=== PATIENT | female | born 1955 | race Caucasian/White ===

== ENCOUNTER 2018-04-22 15:31 | Observation (INO) ==
[2018-04-22] MEDS ORDERED: Ipratropium/Albuterol Neb 3 ML IH ONE (15:56)
[2018-04-22] MEDS ORDERED: methylPREDNISolone 125 MG/2 ML VIAL IVP ONE (15:56)
--- NOTE | 2018-04-22 16:17 | Emergency Department Note ---
Disposition Clinical Impression: Acute exacerbation of chronic obstructive airways disease, Shortness of breath Disposition: Still a Patient Condition: Good Referrals: Seth Amin MD [Primary Care Provider] - Time of Disposition: 18:52 SOB HPI - General Stated Complaint: SOB Time Seen by Provider: 04/22/18 15:39 Source: patient, EMS Mode of arrival: EMS Limitations: no limitations Nursing Notes Reviewed: Yes Vital Signs Reviewed: Yes - History of Present Illness Patient presents to the ED with the chief complaint of shortness of breath. Patient has a history of oxygen dependent COPD. States that she felt fine until today when she got her flu shot. She went home and took a nap, woke up very short of breath. States she has had a productive cough since then. Having chest tightness consistent with her COPD exacerbations. Denying any fever or chills. Denies any abdominal pain. No nausea, vomiting or diarrhea. Has chronic left ankle pain, but otherwise no pain or swelling in her legs. - Related Data Allergies Allergy/AdvReac Type Severity Reaction Status Date / Time lamotrigine [From Lamictal] Allergy See Verified 04/22/18 16:10 Comments morphine Allergy Nausea Verified 04/22/18 16:10 Review of Systems: As reviewed in the HPI. All other systems reviewed are negative or normal. Past Medical History - Past Medical History Attestation: Yes The following information was validated with the patient. Source: patient Physical Exam CONSTITUTIONAL: [well appearing, alert and in mild acute distress] EYES: [EOMI, clear conjunctiva, PERRLA] HENT: [Normocephalic, atraumatic, moist mucus membranes, normal oropharynx] NECK: [normal inspection, full ROM, trachea midline, no obvious swelling] PULMONARY: [mild distress, tachypnea, decreased BS b/l bases, trace wheezing throughout CARDIOVASCULAR: [tachycardic, regular rhythm, normal heart sounds, no murmurs, distal extremities are warm and well perfused] GASTROINSTESTINAL: [soft, non-tender, non-rigid, non-distended, no guarding, no rebound, normal bowel sounds] GENITOURINARY/RECTAL: [deferred] NEUROLOGIC: [Alert, oriented x3, normal speech, moves all extremities] EXTREMITIES: [Normal inspection, full ROM, no tenderness, no pedal edema, normal capillary refill] MUSCULOSKELETAL: [no gross deformities, atraumatic] SKIN: [No cyanosis, no diaphoresis, normal color, warm, no rash] PSYCHIATRIC: [anxious] Course - Reevaluation(s) Reevaluation #1: patient with no clear source of SOB. Will get CTA and sign out to night team Dr. Vera. Vital Signs Temperature 99.8 F H 04/22/18 15:42 Pulse Rate 115 04/22/18 15:42 Respiratory Rate 23 04/22/18 15:42 Blood Pressure 137/79 04/22/18 15:42 O2 Sat by Pulse Oximetry 98 04/22/18 15:42 Temperature 99.8 F H 04/22/18 15:42 Pulse Rate 115 04/22/18 15:42 Respiratory Rate 23 04/22/18 15:42 Blood Pressure 137/79 04/22/18 15:42 O2 Sat by Pulse Oximetry 98 04/22/18 15:42 Oxygen Delivery Oxygen Delivery Nasal Cannula Shortness of Breath/Dyspnea - Lab Data Result diagrams: 04/22/18 16:19 04/22/18 16:19 Lab Results 04/22/18 04/22/18 04/22/18 Range/Units 16:19 16:19 16:19 WBC 14.7 H (4.3-11.1) K/mcL RBC 4.96 (3.82-4.97) M/mcL Hgb 12.0 (11.5-15.4) g/dL Hct 39.9 (35.3-44.9) % MCV 80.4 L (83.0-100.0) fL MCH 24.2 L (28.0-33.3) pg MCHC 30.1 L (31.6-35.5) g/dL RDW 14.6 H (11.5-14.5) % Plt Count 331 (140-400) K/mcL MPV 10.8 (9.4-12.4) fL Immature Gran % 0.3 (0-4) % Seg Neutrophils % 92.1 % Lymphocytes % 3.7 % Monocytes % 3.5 % Eosinophils % 0.3 % Basophils % 0.1 % Neutrophils # 13.6 H (1.6-8.9) K/mcL Lymphocytes # 0.5 L (0.6-4.6) K/mcL Monocytes # 0.5 (0.0-1.3) K/mcL Eosinophils # 0.0 (0.0-0.6) K/mcL Basophils # 0.0 (0.0-0.2) K/mcL Sodium 137 (136-145) mEq/L Potassium 4.4 (3.5-5.1) mEq/L Chloride 102 (98-107) mEq/L Carbon Dioxide 27 (23-29) mEq/L BUN 23 (8-23) mg/dL Creatinine 0.95 (0.60-1.20) mg/dL Est GFR ( Amer) > 60 (> 60) Est GFR (Non-Af Amer) 59 L (> 60) BUN/Creatinine Ratio 24 (6-26) Glucose 170 H (70-105) mg/dL Calculated Osmolality 292 (280-300) Lactic Acid 1.5 (0.5-2.2) mmol/L Calcium 10.1 (8.6-10.3) mg/dL Troponin I < 0.03 (< 0.04) ng/mL B-Natriuretic Peptide (Less than 100) pg/mL 04/22/18 Range/Units 16:19 WBC (4.3-11.1) K/mcL RBC (3.82-4.97) M/mcL Hgb (11.5-15.4) g/dL Hct (35.3-44.9) % MCV (83.0-100.0) fL MCH (28.0-33.3) pg MCHC (31.6-35.5) g/dL RDW (11.5-14.5) % Plt Count (140-400) K/mcL MPV (9.4-12.4) fL Immature Gran % (0-4) % Seg Neutrophils % % Lymphocytes % % Monocytes % % Eosinophils % % Basophils % % Neutrophils # (1.6-8.9) K/mcL Lymphocytes # (0.6-4.6) K/mcL Monocytes # (0.0-1.3) K/mcL Eosinophils # (0.0-0.6) K/mcL Basophils # (0.0-0.2) K/mcL Sodium (136-145) mEq/L Potassium (3.5-5.1) mEq/L Chloride (98-107) mEq/L Carbon Dioxide (23-29) mEq/L BUN (8-23) mg/dL Creatinine (0.60-1.20) mg/dL Est GFR ( Amer) (> 60) Est GFR (Non-Af Amer) (> 60) BUN/Creatinine Ratio (6-26) Glucose (70-105) mg/dL Calculated Osmolality (280-300) Lactic Acid (0.5-2.2) mmol/L Calcium (8.6-10.3) mg/dL Troponin I (< 0.04) ng/mL B-Natriuretic Peptide 36 (Less than 100) pg/mL
[2018-04-22 16:35] LABS: Basophils % 0.1 %; Eosinophils % 0.3 %; Hematocrit 39.9 % (35.3-44.9); Immature Granulocytes % 0.3 % (0-4); Lymphocytes # 0.5 K/mcL (0.6-4.6); Lymphocytes % 3.7 %; Mean Corpuscular HGB Conc 30.1 g/dL (31.6-35.5); Mean Corpuscular Hemoglobin 24.2 pg (28.0-33.3); Mean Corpuscular Volume 80.4 fL (83.0-100.0); Mean Platelet Volume 10.8 fL (9.4-12.4); Monocytes # 0.5 K/mcL (0.0-1.3); Monocytes % 3.5 %; Neutrophils # 13.6 K/mcL (1.6-8.9); Platelet Count 331 K/mcL (140-400); Red Blood Count 4.96 M/mcL (3.82-4.97); Red Cell Distribution Width 14.6 % (11.5-14.5); Segmented Neutrophils % 92.1 %
[2018-04-22 16:54] LABS: BUN/Creatinine Ratio 24 (6-26); Blood Urea Nitrogen 23 mg/dL (8-23); Calcium 10.1 mg/dL (8.6-10.3); Carbon Dioxide 27 mEq/L (23-29); Chloride 102 mEq/L (98-107); Glucose 170 mg/dL (70-105); Osmolality,Calculated 292 (280-300); Potassium 4.4 mEq/L (3.5-5.1); Sodium 137 mEq/L (136-145); Troponin I < 0.03 ng/mL (< 0.04); eGFR For Non-African Americans 59 (> 60)
[2018-04-22] MEDS ORDERED: Isovue-370 500 ML INFUS..BTL IV ONE (17:02)
--- NOTE | 2018-04-22 18:57 | Emergency Department Note ---
Disposition Clinical Impression: Acute exacerbation of chronic obstructive airways disease, Shortness of breath Disposition: Admitted As Inpatient Condition: Good General Adult HPI - General Chief complaint: ED Shortness of Breath/Dyspnea Stated complaint: SOB Time Seen by Provider: 04/22/18 15:39 Source: patient, EMS Mode of arrival: EMS Limitations: no limitations - History of Present Illness Pain Scale: 0 - Related Data Home Medications Medication Instructions Recorded Confirmed Calcium Carbonate/Vitamin D3 1 tab PO BID 04/22/18 04/22/18 [Calcium 600-Vit D3 400 Tablet] Ferrous Sulfate 325 mg PO DAILY 04/22/18 04/22/18 Glycopyrrolate/Formoterol Fum 2 puff IH BID 04/22/18 04/22/18 [Bevespi Aerosphere Inhaler] Hydrochlorothiazide [Microzide] 12.5 mg PO DAILY 04/22/18 04/22/18 Ibandronate Sodium [Boniva] 150 mg PO QMONTH 04/22/18 04/22/18 Metoprolol Tartrate 50 mg PO BID 04/22/18 04/22/18 Pravastatin Sodium [Pravachol] 40 mg PO QPM 04/22/18 04/22/18 RX: Lisinopril [Zestril] 20 mg PO BID 04/22/18 04/22/18 Roflumilast [Daliresp] 500 mg PO DAILY 04/22/18 04/22/18 Verapamil HCl [Verapamil ER] 240 mg PO DAILY 04/22/18 04/22/18 Allergies Allergy/AdvReac Type Severity Reaction Status Date / Time lamotrigine [From Lamictal] Allergy See Verified 04/22/18 16:10 Comments morphine Allergy Nausea Verified 04/22/18 16:10 Past Medical History - Past Medical History Medical history: Reports: COPD, hypertension Psychiatric history: Reports: no psych history - Social History Smoking Status: Former smoker Alcohol use: Reports: none Drug use: Reports: none Physical Exam - General Limitations: no limitations General appearance: alert Course Vital Signs Temperature 99.8 F H 04/22/18 15:42 Pulse Rate 115 04/22/18 15:42 Respiratory Rate 23 04/22/18 15:42 Blood Pressure 137/79 04/22/18 15:42 O2 Sat by Pulse Oximetry 98 04/22/18 15:42 Temperature 98.3 F 04/23/18 11:52 Pulse Rate 96 04/23/18 11:52 Respiratory Rate 16 04/23/18 11:52 Blood Pressure 130/69 04/23/18 11:52 O2 Sat by Pulse Oximetry 98 04/23/18 11:52 Oxygen Delivery Oxygen Delivery Nasal Cannula Medical Decision Making - Lab Data Result diagrams: 04/22/18 16:19 04/22/18 16:19 Lab Results 04/22/18 04/22/18 04/22/18 Range/Units 16:19 16:19 16:19 WBC 14.7 H (4.3-11.1) K/mcL RBC 4.96 (3.82-4.97) M/mcL Hgb 12.0 (11.5-15.4) g/dL Hct 39.9 (35.3-44.9) % MCV 80.4 L (83.0-100.0) fL MCH 24.2 L (28.0-33.3) pg MCHC 30.1 L (31.6-35.5) g/dL RDW 14.6 H (11.5-14.5) % Plt Count 331 (140-400) K/mcL MPV 10.8 (9.4-12.4) fL Immature Gran % 0.3 (0-4) % Seg Neutrophils % 92.1 % Lymphocytes % 3.7 % Monocytes % 3.5 % Eosinophils % 0.3 % Basophils % 0.1 % Neutrophils # 13.6 H (1.6-8.9) K/mcL Lymphocytes # 0.5 L (0.6-4.6) K/mcL Monocytes # 0.5 (0.0-1.3) K/mcL Eosinophils # 0.0 (0.0-0.6) K/mcL Basophils # 0.0 (0.0-0.2) K/mcL Sodium 137 (136-145) mEq/L Potassium 4.4 (3.5-5.1) mEq/L Chloride 102 (98-107) mEq/L Carbon Dioxide 27 (23-29) mEq/L BUN 23 (8-23) mg/dL Creatinine 0.95 (0.60-1.20) mg/dL Est GFR ( Amer) > 60 (> 60) Est GFR (Non-Af Amer) 59 L (> 60) BUN/Creatinine Ratio 24 (6-26) Glucose 170 H (70-105) mg/dL Calculated Osmolality 292 (280-300) Lactic Acid 1.5 (0.5-2.2) mmol/L Calcium 10.1 (8.6-10.3) mg/dL Magnesium 1.5 L (1.6-2.6) mg/dL Troponin I < 0.03 (< 0.04) ng/mL B-Natriuretic Peptide (Less than 100) pg/mL 04/22/18 Range/Units 16:19 WBC (4.3-11.1) K/mcL RBC (3.82-4.97) M/mcL Hgb (11.5-15.4) g/dL Hct (35.3-44.9) % MCV (83.0-100.0) fL MCH (28.0-33.3) pg MCHC (31.6-35.5) g/dL RDW (11.5-14.5) % Plt Count (140-400) K/mcL MPV (9.4-12.4) fL Immature Gran % (0-4) % Seg Neutrophils % % Lymphocytes % % Monocytes % % Eosinophils % % Basophils % % Neutrophils # (1.6-8.9) K/mcL Lymphocytes # (0.6-4.6) K/mcL Monocytes # (0.0-1.3) K/mcL Eosinophils # (0.0-0.6) K/mcL Basophils # (0.0-0.2) K/mcL Sodium (136-145) mEq/L Potassium (3.5-5.1) mEq/L Chloride (98-107) mEq/L Carbon Dioxide (23-29) mEq/L BUN (8-23) mg/dL Creatinine (0.60-1.20) mg/dL Est GFR ( Amer) (> 60) Est GFR (Non-Af Amer) (> 60) BUN/Creatinine Ratio (6-26) Glucose (70-105) mg/dL Calculated Osmolality (280-300) Lactic Acid (0.5-2.2) mmol/L Calcium (8.6-10.3) mg/dL Magnesium (1.6-2.6) mg/dL Troponin I (< 0.04) ng/mL B-Natriuretic Peptide 36 (Less than 100) pg/mL Attestation Statement - Attestation Attestation: Resident Attestation: I examined this patient and my medical decision making was reviewed with the Resident Physician. I agree with the documented findings, disposition and treatment plan as described except to the extent set forth below. We independently had [id number] contact with the patient. Patient seen with resident physician Dr. Hua Moura. Please see their note for further details and disposition. History of COPD as well as CHF presenting for evaluation of shortness of breath proximally and hour after she received the flu shot. Patient has associated wheezing and tachypnea with tachycardia. Patient likely has COPD exacerbation. The patient will undergo further breathing treatments and evaluation. Patient will likely require admission. Mild respiratory distress with associated increased worker breathing and generalized wheezing. No significant peripheral edema.
--- NOTE | 2018-04-22 19:18 | Emergency Department Note ---
Disposition Clinical Impression: Acute exacerbation of chronic obstructive airways disease, Shortness of breath Disposition: Admitted As Inpatient Condition: Good General Adult HPI - General Chief complaint: ED Shortness of Breath/Dyspnea Stated complaint: SOB Time Seen by Provider: 04/22/18 15:39 Source: patient, EMS Mode of arrival: EMS Limitations: no limitations Nursing Notes Reviewed: Yes Vital Signs Reviewed: Yes - History of Present Illness Pain Scale: 0 - Related Data Home Medications Medication Instructions Recorded Confirmed Calcium Carbonate/Vitamin D3 1 tab PO BID 04/22/18 04/22/18 [Calcium 600-Vit D3 400 Tablet] Ferrous Sulfate 325 mg PO DAILY 04/22/18 04/22/18 Glycopyrrolate/Formoterol Fum 2 puff IH BID 04/22/18 04/22/18 [Bevespi Aerosphere Inhaler] Hydrochlorothiazide [Microzide] 12.5 mg PO DAILY 04/22/18 04/22/18 Ibandronate Sodium [Boniva] 150 mg PO QMONTH 04/22/18 04/22/18 Metoprolol Tartrate 50 mg PO BID 04/22/18 04/22/18 Pravastatin Sodium [Pravachol] 40 mg PO QPM 04/22/18 04/22/18 RX: Lisinopril [Zestril] 20 mg PO DAILY 04/22/18 04/22/18 Roflumilast [Daliresp] 500 mg PO DAILY 04/22/18 04/22/18 Verapamil HCl [Verapamil ER] 240 mg PO DAILY 04/22/18 04/22/18 Allergies Allergy/AdvReac Type Severity Reaction Status Date / Time lamotrigine [From Lamictal] Allergy See Verified 04/22/18 16:10 Comments morphine Allergy Nausea Verified 04/22/18 16:10 Past Medical History - Past Medical History Medical history: Reports: COPD, hypertension Psychiatric history: Reports: no psych history - Social History Smoking Status: Former smoker Alcohol use: Reports: none Drug use: Reports: none Physical Exam - General Limitations: no limitations General appearance: alert Course Course Narrative: Patient signed out from day shift team pending final disposition and imaging. Please see their documentation for details. In brief oxygen-dependent COPD patient presenting with abdominal shortness of breath today. She had her influenza vaccine earlier in the day. Reports feeling short of breath. Denies any fever cough or chest pain. No history of DVT or PE. Denies a history of CAD or CHF. Imaging labs reviewed. She has cardiomegaly and vascular congestion on her chest x-ray. Labs are grossly unremarkable. Currently waiting CTA imaging. She received DuoNeb treatments prior to my evaluation and reported some improvement in her symptoms. - Reevaluation(s) Reevaluation #1: Discussed results of imaging with the patient. Agreeable with plan. She feels better at this time after her aerosols. Vital Signs Temperature 99.8 F H 04/22/18 15:42 Pulse Rate 115 04/22/18 15:42 Respiratory Rate 23 04/22/18 15:42 Blood Pressure 137/79 04/22/18 15:42 O2 Sat by Pulse Oximetry 98 04/22/18 15:42 Temperature 99.8 F H 04/22/18 15:42 Pulse Rate 96 04/22/18 19:40 Respiratory Rate 22 04/22/18 19:40 Blood Pressure 105/54 04/22/18 19:40 O2 Sat by Pulse Oximetry 97 04/22/18 19:40 Oxygen Delivery Oxygen Delivery Nasal Cannula Medical Decision Making - [facility] Narrative Medical decision making narrative: 63-year-old female presenting with 1 day of shortness of breath. Underlying history of oxygen-dependent COPD. She did receive her influenza vaccine today which seems to have patient to her current symptomatology. She improved here with DuoNeb treatments. EKG is sinus tachycardia. CTA is negative for PE or acute findings. Labs demonstrated a leukocytosis otherwise no acute abnormalities otherwise. Patient given Levaquin for exacerbation. Admitted to the hospitalist service. Chest X-Ray 04/22/18 15:56 IMPRESSION: 1. Cardiomegaly with vascular congestion. D/ / Jr Das MD / Jr Das MD Interpreting Provider: Jr Das MD Chest CTA 04/22/18 17:02 IMPRESSION: No pulmonary embolism is detected. No evidence of thoracic aortic dissection. Mild atelectasis within the lower lungs bilaterally, greatest in the lingula. Otherwise, no acute focal infiltrate. D/ / Boaz Ortiz MD / Boaz Ortiz MD Interpreting Provider: Boaz Ortiz MD 2010 hrs.: No PE detected. This showed the atelectasis pattern but no infiltrates. We will proceed with admission. - Lab Data Lab results reviewed: Yes I reviewed the patient's lab results. Result diagrams: 04/22/18 16:19 04/22/18 16:19 Lab Results 04/22/18 04/22/18 04/22/18 Range/Units 16:19 16:19 16:19 WBC 14.7 H (4.3-11.1) K/mcL RBC 4.96 (3.82-4.97) M/mcL Hgb 12.0 (11.5-15.4) g/dL Hct 39.9 (35.3-44.9) % MCV 80.4 L (83.0-100.0) fL MCH 24.2 L (28.0-33.3) pg MCHC 30.1 L (31.6-35.5) g/dL RDW 14.6 H (11.5-14.5) % Plt Count 331 (140-400) K/mcL MPV 10.8 (9.4-12.4) fL Immature Gran % 0.3 (0-4) % Seg Neutrophils % 92.1 % Lymphocytes % 3.7 % Monocytes % 3.5 % Eosinophils % 0.3 % Basophils % 0.1 % Neutrophils # 13.6 H (1.6-8.9) K/mcL Lymphocytes # 0.5 L (0.6-4.6) K/mcL Monocytes # 0.5 (0.0-1.3) K/mcL Eosinophils # 0.0 (0.0-0.6) K/mcL Basophils # 0.0 (0.0-0.2) K/mcL Sodium 137 (136-145) mEq/L Potassium 4.4 (3.5-5.1) mEq/L Chloride 102 (98-107) mEq/L Carbon Dioxide 27 (23-29) mEq/L BUN 23 (8-23) mg/dL Creatinine 0.95 (0.60-1.20) mg/dL Est GFR ( Amer) > 60 (> 60) Est GFR (Non-Af Amer) 59 L (> 60) BUN/Creatinine Ratio 24 (6-26) Glucose 170 H (70-105) mg/dL Calculated Osmolality 292 (280-300) Lactic Acid 1.5 (0.5-2.2) mmol/L Calcium 10.1 (8.6-10.3) mg/dL Magnesium 1.5 L (1.6-2.6) mg/dL Troponin I < 0.03 (< 0.04) ng/mL B-Natriuretic Peptide (Less than 100) pg/mL 04/22/18 Range/Units 16:19 WBC (4.3-11.1) K/mcL RBC (3.82-4.97) M/mcL Hgb (11.5-15.4) g/dL Hct (35.3-44.9) % MCV (83.0-100.0) fL MCH (28.0-33.3) pg MCHC (31.6-35.5) g/dL RDW (11.5-14.5) % Plt Count (140-400) K/mcL MPV (9.4-12.4) fL Immature Gran % (0-4) % Seg Neutrophils % % Lymphocytes % % Monocytes % % Eosinophils % % Basophils % % Neutrophils # (1.6-8.9) K/mcL Lymphocytes # (0.6-4.6) K/mcL Monocytes # (0.0-1.3) K/mcL Eosinophils # (0.0-0.6) K/mcL Basophils # (0.0-0.2) K/mcL Sodium (136-145) mEq/L Potassium (3.5-5.1) mEq/L Chloride (98-107) mEq/L Carbon Dioxide (23-29) mEq/L BUN (8-23) mg/dL Creatinine (0.60-1.20) mg/dL Est GFR ( Amer) (> 60) Est GFR (Non-Af Amer) (> 60) BUN/Creatinine Ratio (6-26) Glucose (70-105) mg/dL Calculated Osmolality (280-300) Lactic Acid (0.5-2.2) mmol/L Calcium (8.6-10.3) mg/dL Magnesium (1.6-2.6) mg/dL Troponin I (< 0.04) ng/mL B-Natriuretic Peptide 36 (Less than 100) pg/mL - Radiology Data Radiology results reviewed: Yes I reviewed the patient's radiology results. Chest X-Ray 04/22/18 15:56 IMPRESSION: 1. Cardiomegaly with vascular congestion. D/ / Jr Das MD / Jr Das MD Interpreting Provider: Jr Das MD Chest CTA 04/22/18 17:02 IMPRESSION: No pulmonary embolism is detected. No evidence of thoracic aortic dissection. Mild atelectasis within the lower lungs bilaterally, greatest in the lingula. Otherwise, no acute focal infiltrate. D/ / Boaz Ortiz MD / Boaz Ortiz MD Interpreting Provider: Boaz Ortiz MD - EKG Data EKG #1 EKG attestation: Yes I reviewed and interpreted this EKG. EKG results narrative: EKG demonstrates sinus tachycardia with a rate of 1:15. Normal axis. Normal intervals. Normal R-wave progression. No gross ST elevations or depressions. No acute ischemic findings. S.B.A.R. - S.B.A.R. Situation: Demographics, MOA Background: Presenting Complaint, Relevant PMH, Meds, & Allergies Assessment: Vital Signs, Course and respsone to treatment, Exam Concerns, Pat ient/Family Expectation, Pertinant Lab Results Recommendation: Barrier(s) to disposition, Recommendation based on pending studies, treatments, or consults S.B.A.R. Report Given to: Dr. Gaming Attestation Statement - Attestation Attestation: This documentation is done with the assistance of Dragon dictation. Despite efforts made to ensure accuracy, there may be inaccuracies in principal secretary or spelling and typographical errors. I examined this patient and my medical decision-making was reviewed with the Resident Physician. I agree with the documented findings, disposition and treatment plan as described except to the extent set forth below. Patient was a sign out from the day shift ER physician, they are waiting on a CTA for her to rule out PE. She is new onset CHF. Has a history of COPD. She says she does not need another breathing treatment at this time. We will await for the CTA and then one sets back she will need admission. She is in agreement with this plan. Dr. Haque and I saw this patient together I agree with his evaluation, man agement plan, and I supervised the care of the patient's stay.
[2018-04-22] MEDS ORDERED: Levofloxacin 750 MG/150 ML 750 MG/150 ML BAG IVPB ONE (20:10)
[2018-04-22 21:19] LABS: Magnesium 1.5 mg/dL (1.6-2.6)
[2018-04-23] MEDS ORDERED: Naloxone 0.4 MG/ML INJ IVP PRN (08:24)
[2018-04-23] MEDS ORDERED: *HR* Promethazine 25 MG/ML VIAL IVP PRN (08:24)
[2018-04-23] MEDS ORDERED: Acetaminophen 325 MG TABLET PO PRN (08:24)
[2018-04-23] MEDS ORDERED: Ondansetron 4 MG/2 ML VIAL IVP PRN (08:24)
[2018-04-23] MEDS: MethylPREDNISolone 40 MG/ML VIAL IVP SCH ×2 (10:07→17:58)
[2018-04-23] MEDS: Furosemide 20 MG/2 ML VIAL IVP SCH ×2 (10:08→17:58)
--- NOTE | 2018-04-23 10:26 | Internal Med History&Physical ---
Date of Encounter: 04/23/18 Time of Encounter: 08:10 Internal Medicine - H&P: HPI Chief complaint: Shortness of breath Admitted From: Emergency Dept Plans for Post Hospital Care: Home History of present illness: Ms. Kingsley is a 63 year old female with known past the history of COPD, chronic hypoxic respiratory failure on 3 lit home oxygen dependent, hypertension and hyperlipidemia patient presented to emergency room yesterday complaining about a worsening shortness of breath and cough with no expectoration. She d enied any chest pain. Her chest x-ray showed mild cardio medley with vascular congestion. When I examined her this morning she is alert, awake, oriented times 3, denied any chest pain. Still having mild to moderate shortness of breath and dyspnea on exertion. She did mention mild bilateral lower extremity edema Past Med Surg Social Fam HX - Past Medical History Medical history: COPD, hypertension Psychiatric history: no psych history - Past Surgical History Additional surgical history: ankle. carpal tunnel - Social History Smoking Status: Former smoker Alcohol use: none Drug use: none - Family History Mother Hx Family Respiratory Disorders: Yes (COPD) Hx Family Endocrine Disorder: Yes (DM) Internal Medicine - H&P: Meds Calcium Carbonate/Vitamin D3 [Calcium 600-Vit D3 400 Tablet] 1 tab PO BID 04/22/18 [History] Ferrous Sulfate 325 mg PO DAILY 04/22/18 [History] Glycopyrrolate/Formoterol Fum [Bevespi Aerosphere Inhaler] 2 puff IH BID [History] Hydrochlorothiazide [Microzide] 12.5 mg PO DAILY 04/22/18 [History] Ibandronate Sodium [Boniva] 150 mg PO QMONTH 04/22/18 [History] Lisinopril [Zestril] 20 mg PO BID 04/22/18 [History] Metoprolol Tartrate 50 mg PO BID 04/22/18 [History] Pravastatin Sodium [Pravachol] 40 mg PO QPM 04/22/18 [History] Roflumilast [Daliresp] 500 mg PO DAILY 04/22/18 [History] Verapamil HCl [Verapamil ER] 240 mg PO DAILY 04/22/18 [History] Allergy/AdvReac Type Severity Reaction Status Date / Time lamotrigine [From Lamictal] Allergy See Verified 04/22/18 16:10 Comments morphine Allergy Nausea Verified 04/22/18 16:10 All Systems PM: A 10-system review of systems was performed and is negative for pertinent findings except as documented above in the HPI. Review of systems: All the systems are reviewed everything is benign except the systems and symptoms I mentioned in the history of present illness - Constitutional Vitals: Temp Pulse Resp BP Pulse Ox 98.6 F 94 16 115/68 96 04/23/18 07:14 04/23/18 07:14 04/23/18 07:14 04/23/18 07:14 04/23/18 07:14 General appearance: Present: A&O X 3, no acute distress, answers questions appropriately Exam: See below - Head Head exam: Present: atraumatic, normal inspection - Neck Neck exam general surgery: Present: supple - Respiratory Respiratory exam: Present: decreased breath sounds, wheezes (Moderate). Absent: rales, respiratory distress, rhonchi - Cardiovascular Cardiovascular exam: Present: RRR, +S1, +S2. Absent: tachycardia - GI/Abdominal GI/Abdominal exam: Present: normal bowel sounds, soft. Absent: rebound, rigid, tenderness - Extremities Exam Extremities exam: Present: pedal edema (Trace). Absent: calf tenderness, tenderness - Back Exam Back exam: Absent: CVA tenderness (L), CVA tenderness (R) - Neurological Exam Neurological exam: Present: alert, oriented X3 - Psychiatric Psychiatric exam: Present: normal affect, normal mood - Skin Skin exam: Absent: rash Internal Med - H&P Results - Labs CBC & Chem 7: 04/22/18 16:19 04/22/18 16:19 Labs: Short CBC 04/22/18 Range/Units 16:19 WBC 14.7 H (4.3-11.1) K/mcL Hgb 12.0 (11.5-15.4) g/dL Hct 39.9 (35.3-44.9) % Plt Count 331 (140-400) K/mcL Neutrophils # 13.6 H (1.6-8.9) K/mcL BMP 04/22/18 16:19 Sodium 137 Potassium 4.4 Chloride 102 Carbon Dioxide 27 BUN 23 Creatinine 0.95 Glucose 170 H Calcium 10.1 Cardiac Enzymes 04/22/18 Range/Units 16:19 Troponin I < 0.03 (< 0.04) ng/mL - Impressions ITS Impressions Chest X-Ray 04/22/18 15:56 IMPRESSION: 1. Cardiomegaly with vascular congestion. D/ / Jr Das MD / Jr Das MD Interpreting Provider: Jr Das MD Chest CTA 04/22/18 17:02 IMPRESSION: No pulmonary embolism is detected. No evidence of thoracic aortic dissection. Mild atelectasis within the lower lungs bilaterally, greatest in the lingula. Otherwise, no acute focal infiltrate. D/ / Boaz Ortiz MD / Boaz Ortiz MD Interpreting Provider: Boaz Ortiz MD - Assessment and plan (1) Acute exacerbation of chronic obstructive airways disease Current Visit: Yes Status: Acute Assessment and plan: Place the patient into Tele for observation reviewed her chest x-ray and labs started her on low-dose IV steroids started her on prophylactic antibiotic levofloxacin continue Duoneb she does have chronic hypoxic respiratory failure currently patient is breathing comfortably on 3 lit oxygen which is her baseline (2) Acute exacerbation of CHF (congestive heart failure) Current Visit: Yes Status: Acute Assessment and plan: Reviewed chest x-ray showed mild vascular congestion with cardiomegaly she might have mild diastolic heart failure exacerbation will obtain 2-D echo started her on gentle IV diuresis with Lasix 20 mg b.i.d. resumed home medication beta anamaria, aspirin, and Statin Qualifiers: Heart failure type: unspecified Qualified Code(s): I50.9 - Heart failure, unspecified (3) Acute bronchitis Current Visit: Yes Status: Acute Assessment and plan: Symptoms concerning for bronchitis too will check respiratory viral panel Qualifiers: Bronchitis organism: unspecified organism Qualified Code(s): J20.9 - Acute bronchitis, unspecified (4) Hypertension Current Visit: Yes Status: Acute Assessment and plan: Resumed home medications Qualifiers: Hypertension type: essential hypertension Qualified Code(s): I10 - Essential (primary) hypertension (5) Hyperlipidemia Current Visit: Yes Status: Acute Assessment and plan: Resumed home medications Qualifiers: Hyperlipidemia type: unspecified Qualified Code(s): E78.5 - Hyperlipidemia, unspecified - Time Spent With Patient Total time spent is greater than 50% in coordination of care (as documented) at patient's floor/unit and/or counseling patient:
[2018-04-23] MEDS: Ipratropium/Albuterol Neb 3 ML IH SCH ×4 (11:20→20:03)
[2018-04-23] MEDS: *HR* HYDROcodone/Acet 5/325 mg TABLET PO PRN (19:29)
[2018-04-23 22:12] LABS: Adenovirus Not Detected (Not Detect); Bordetella Pertussis Not Detected (Not Detect); Chlamydophila pneumoniae Not Detected (Not Detect); Coronavirus 229E Not Detected (Not Detect); Coronavirus HKU1 Not Detected (Not Detect); Coronavirus NL63 Not Detected (Not Detect); Coronavirus OC43 Not Detected (Not Detect); Human Metapneumovirus Not Detected (Not Detect); Human Rhinovirus/Enterovirus Not Detected (Not Detect); Influenza A Subtype 2009 H1 Not Detected (Not Detect); Influenza A Untypeable Not Detected (Not Detect); Influenza B Not Detected (Not Detect); Mycoplasma pneumoniae Not Detected (Not Detect); Parainfluenza Virus 1 Not Detected (Not Detect); Parainfluenza Virus 2 Not Detected (Not Detect); Parainfluenza Virus 3 Not Detected (Not Detect); Parainfluenza Virus 4 Not Detected (Not Detect); Respiratory Syncytial Virus Not Detected (Not Detect)
[2018-04-23 23:44] LABS: Bilirubin,Urine Negative (Negative); Blood,Urine Negative (Negative); Clarity,Urine Clear (Clear); Color,Urine Yellow (Yellow); Glucose,Urine (UA) >=1000 mg/dL (Normal); Ketones,Urine Negative (Negative); Leukocyte Esterase,Urine Negative (Negative); Nitrite,Urine Negative (Negative); Protein,Urine Negative (Neg-Trace); Specific Gravity,Urine 1.018 (1.010-1.025); Urobilinogen,Urine Normal (Normal)
[2018-04-24] MEDS: Ipratropium/Albuterol Neb 3 ML IH SCH ×4 (00:27→11:26)
[2018-04-24] MEDS: *HR* HYDROcodone/Acet 5/325 mg TABLET PO PRN (01:27)
[2018-04-24] MEDS: MethylPREDNISolone 40 MG/ML VIAL IVP SCH (05:04)
[2018-04-24 05:05] LABS: Basophils % 0.1 %; Hematocrit 37.2 % (35.3-44.9); Hemoglobin 11.2 g/dL (11.5-15.4); Immature Granulocytes % 0.5 % (0-4); Lymphocytes # 0.5 K/mcL (0.6-4.6); Lymphocytes % 2.8 %; Mean Corpuscular HGB Conc 30.1 g/dL (31.6-35.5); Mean Corpuscular Hemoglobin 24.3 pg (28.0-33.3); Mean Corpuscular Volume 80.7 fL (83.0-100.0); Mean Platelet Volume 11.2 fL (9.4-12.4); Monocytes # 0.8 K/mcL (0.0-1.3); Monocytes % 4.2 %; Neutrophils # 16.3 K/mcL (1.6-8.9); Platelet Count 348 K/mcL (140-400); Red Blood Count 4.61 M/mcL (3.82-4.97); Red Cell Distribution Width 15.2 % (11.5-14.5); Segmented Neutrophils % 92.4 %
[2018-04-24 05:24] LABS: BUN/Creatinine Ratio 35 (6-26); Blood Urea Nitrogen 37 mg/dL (8-23); Carbon Dioxide 22 mEq/L (23-29); Chloride 102 mEq/L (98-107); Chol/HDL Ratio 2.6 (0-4.9); Cholesterol 159 mg/dL (< 200); Glucose 404 mg/dL (70-105); HDL Cholesterol 61 mg/dL (40-59); LDL Cholesterol,Calculated 83 mg/dL (0-99); Osmolality,Calculated 308 (280-300); Potassium 4.5 mEq/L (3.5-5.1); Sodium 136 mEq/L (136-145); Triglycerides 74 mg/dL (< 150); eGFR For Non-African Americans 52 (> 60)
[2018-04-24] MEDS ORDERED: *HR* Enoxaparin 40 MG/0.4 ML SYRINGE SQ SCH (06:00)
[2018-04-24] MEDS: Furosemide 20 MG/2 ML VIAL IVP SCH (09:22)
--- NOTE | 2018-04-24 11:00 | Discharge Summary ---
- NOTES TO OUTPATIENT PROVIDER Notes to Outpatient Provider: f/u with PCP in one week. please stop taking HCTZ. cont taking Lasix 20mg PO daily. Please take Lisinopril 2mg PO Daily Date of Encounter: 04/24/18 Time of Encounter: 10:58 - Discharge Diagnosis (1) Acute exacerbation of chronic obstructive airways disease Priority: Primary Status: Acute (2) Acute exacerbation of CHF (congestive heart failure) Priority: Primary Status: Acute Qualifiers: Heart failure type: diastolic Qualified Code(s): I50.33 - Acute on chronic diastolic (congestive) heart failure (3) Acute bronchitis Priority: Primary Status: Acute Qualifiers: Bronchitis organism: unspecified organism Qualified Code(s): J20.9 - Acute bronchitis, unspecified (4) Hypertension Priority: Secondary Status: Acute Qualifiers: Hypertension type: essential hypertension Qualified Code(s): I10 - Essential (primary) hypertension (5) Hyperlipidemia Priority: Secondary Status: Acute Qualifiers: Hyperlipidemia type: unspecified Qualified Code(s): E78.5 - Hyperlipidemia, unspecified Hospital course: Ms. Kingsley is a 63 year old female with known past the history of COPD, chronic hypoxic respiratory failure on 3 lit home oxygen dependent, hypertension and hyperlipidemia patient presented to emergency room yesterday complaining about a worsening shortness of breath and cough with no expectoration. She denied any chest pain. Her chest x-ray showed mild cardio medley with vascular congestion. When I examined her this morning she is alert, awake, oriented times 3, denied any chest pain. Still having mild to moderate shortness of breath and dyspnea on exertion. She did mention mild bilateral lower extremity edema. Patient was admitted in the hospital and started on IV Lasix as well as low-dose IV steroids because of for COPD exacerbation. Patient symptoms improved today. She is breathing comfortably on room air. Her echocardiogram showed preserved LVEF with mild diastolic dysfunction. I did discuss with the patient about echo results. Recommend to check daily weights and continue taking Lasix 20 mg PO daily. Also stopped her hydrochlorothiazide. We will discharge her home in a stable condition today - Time Spent with Patient Total time spent providing and/or coordinating discharge services: - Discharge Medications Home Medications: Calcium Carbonate/Vitamin D3 [Calcium 600-Vit D3 400 Tablet] 1 tab PO BID 04/22/18 [History] Ferrous Sulfate 325 mg PO DAILY 04/22/18 [History] Glycopyrrolate/Formoterol Fum [Bevespi Aerosphere Inhaler] 2 puff IH BID 04/22/18 [History] Hydrochlorothiazide [Microzide] 12.5 mg PO DAILY 04/22/18 [History] Ibandronate Sodium [Boniva] 150 mg PO QMONTH 04/22/18 [History] Lisinopril [Zestril] 20 mg PO BID 04/22/18 [History] Metoprolol Tartrate 50 mg PO BID 04/22/18 [History] Pravastatin Sodium [Pravachol] 40 mg PO QPM 04/22/18 [History] Roflumilast [Daliresp] 500 mg PO DAILY 04/22/18 [History] Verapamil HCl [Verapamil ER] 240 mg PO DAILY 04/22/18 [History] Allergies/Adverse Reactions: Allergy/AdvReac Type Severity Reaction Status Date / Time lamotrigine [From Lamictal] Allergy See Verified 04/22/18 16:10 Comments morphine Allergy Nausea Verified 04/22/18 16:10 Date of admission: 04/22/18 21:31 Primary care physician: Seth Amin MD - Constitutional Vitals: Temp Pulse Resp BP Pulse Ox 97.6 F 84 16 130/71 96 04/24/18 07:04 04/24/18 07:04 04/24/18 07:04 04/24/18 07:04 04/24/18 07:04 General appearance: Present: A&O X 3, no acute distress, answers questions appropriately Exam: see below - Head Head exam: Present: atraumatic, normal inspection - Respiratory Respiratory exam: Present: decreased breath sounds, wheezes (Mild). Absent: rales, respiratory distress, rhonchi - Cardiovascular Cardiovascular exam: Present: RRR, +S1, +S2. Absent: systolic murmur, tachycardia - GI/Abdominal GI/Abdominal exam: Present: normal bowel sounds, soft. Absent: rebound, rigid, tenderness - Extremities Exam Extremities exam: Absent: calf tenderness, pedal edema, tenderness - Back Exam Back exam: Absent: CVA tenderness (L), CVA tenderness (R) - Patient Status Disposition: Home, Self-Care Condition: Good Overall status at discharge: patient is back to baseline - Discharge Instructions Follow Up With: Seth Amin MD [Primary Care Provider] - Forms: ED Satisfaction Letter - Diet and Activity Activity: increase activity as tolerated Diet: low salt diet
[2018-04-24 11:32] VITALS: BP 124/64
[2018-04-24] MEDS ORDERED: Levofloxacin 750 MG/150 ML 750 MG/150 ML BAG IVPB SCH (21:00)
--- NOTE | 2018-04-24 21:22 | Electrocardiograph Report ---
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
== END 2018-04-24 12:21 | disposition home or self-care (01) ==
LOC: 3BNU 15:31 → EMEROOARM 15:31 → 3BNU 21:57
PROVIDERS: ADMIT Family Medicine; ATTEND Family Medicine

== ENCOUNTER 2018-05-18 09:25 | Observation (INO) ==
[2018-05-18] MEDS ORDERED: Ipratropium/Albuterol Neb 3 ML IH ONE (09:40)
[2018-05-18] MEDS ORDERED: predniSONE 20 MG TABLET PO ONE (09:40)
[2018-05-18] MEDS ORDERED: Albuterol 2.5 MG/3 ML NEBULIZER IH ONE (09:40)
--- NOTE | 2018-05-18 09:43 | Emergency Department Note ---
Disposition Clinical Impression: COPD (chronic obstructive pulmonary disease) Qualifiers: COPD type: COPD with acute exacerbation Qualified Code(s): J44.1 - Chronic obstructive pulmonary disease with (acute) exacerbation Disposition: Admitted As Inpatient Condition: Good Referrals: Seth Amin MD [Primary Care Provider] - Forms: ED Satisfaction Letter Time of Disposition: 13:19 General Adult HPI - General Chief complaint: ED Shortness of Breath/Dyspnea Stated complaint: SOB Time Seen by Provider: 05/18/18 09:35 Source: patient, EMS Mode of arrival: EMS Limitations: no limitations - History of Present Illness HPI Narrative: This is a 63-year-old female brought in by EMS because of worsening nonproductive cough and shortness of breath that she states has been progressing over the last 5 days. No chest pain. She has shortness of breath with coughing fits and also with exertion. Pain Scale: 0 - Related Data Home Medications Medication Instructions Recorded Confirmed Calcium Carbonate/Vitamin D3 1 tab PO BID 04/22/18 04/22/18 [Calcium 600-Vit D3 400 Tablet] Ferrous Sulfate 325 mg PO DAILY 04/22/18 04/22/18 Glycopyrrolate/Formoterol Fum 2 puff IH BID 04/22/18 04/22/18 [Bevespi Aerosphere Inhaler] Ibandronate Sodium [Boniva] 150 mg PO QMONTH 04/22/18 04/22/18 Metoprolol Tartrate 50 mg PO BID 04/22/18 04/22/18 Pravastatin Sodium [Pravachol] 40 mg PO QPM 04/22/18 04/22/18 Roflumilast [Daliresp] 500 mg PO DAILY 04/22/18 04/22/18 Verapamil HCl [Verapamil ER] 240 mg PO DAILY 04/22/18 04/22/18 Previous Rx's Medication Instructions Recorded Furosemide [Lasix] 20 mg PO DAILY #30 tablet 04/24/18 Levofloxacin [Levaquin] 500 mg PO DAILY #2 04/24/18 Lisinopril [Zestril] 20 mg PO DAILY #0 04/24/18 predniSONE [PredniSONE] 40 mg PO DAILY #10 tablet 04/24/18 Allergies Allergy/AdvReac Type Severity Reaction Status Date / Time lamotrigine [From Lamictal] Allergy See Verified 05/18/18 09:30 Comments morphine Allergy Nausea Verified 05/18/18 09:30 All systems ED: reviewed and negative except as stated. Cardiovascular: Reports: dyspnea on exertion. Denies: chest pain Respiratory: Reports: cough, dyspnea Past Medical History - Past Medical History Medical history: Reports: COPD, hypertension Psychiatric history: Reports: no psych history - Social History Smoking Status: Former smoker Alcohol use: Reports: none Drug use: Reports: none Physical Exam - General Limitations: no limitations General appearance: alert, in distress (In mild to moderate restaurant distress) - Head Head exam: atraumatic, normocephalic, normal inspection - Eye Eye exam: Present: normal appearance, PERRL, EOMI - Chest Chest inspection: Present: normal inspection, symmetric chest wall rise - Respiratory Respiratory exam: Present: respiratory distress (Mild restaurant distress during fits of coughing), wheezes (There tight expiratory wheezes in the bases), other (There are course crackles in the apices bilaterally) - Cardiovascular Cardiovascular exam: Present: normal rhythm, tachycardia, normal heart sounds - Abdominal Exam Abdominal exam: Present: soft, Non-Tender. Absent: tenderness, distention, guarding, rebound, rigidity - Extremities Exam Extremities exam: Present: normal inspection, full ROM. Absent: tenderness, pedal edema - Neurological Exam Neurological exam: Present: alert, oriented X3 - Psychiatric Psychiatric exam: Present: normal affect, normal mood - Skin Skin exam: Present: warm, dry, intact, normal color Course Course Narrative: This is a 63-year-old female with an exam most consistent with COPD exacerbation. Vital Signs Temperature 98.8 F 05/18/18 09:30 Pulse Rate 121 05/18/18 09:30 Respiratory Rate 16 05/18/18 09:30 Blood Pressure 117/68 05/18/18 09:30 O2 Sat by Pulse Oximetry 94 05/18/18 09:30 Temperature 98.8 F 05/18/18 09:30 Pulse Rate 121 05/18/18 09:30 Respiratory Rate 16 05/18/18 09:30 Blood Pressure 117/68 05/18/18 09:30 O2 Sat by Pulse Oximetry 94 05/18/18 09:33 Oxygen Delivery Oxygen Delivery Nasal Cannula Medical Decision Making - MDM Narrative Medical decision making narrative: This is a 63-year-old female with an apparent COPD exacerbation. She will initially was tachycardic and this was associated with a fit of coughing and shortness of breath. Her heart rate returned to the normal range after breathing treatments and after she was able to calm down. DuoNeb and albuterol were both given Prednisone were given Azithromycin was given because of a change in sputum character Cough was marginally improved after Tessalon, and I discussed her case with the on-call hospitalist, who accepted her for observation. - Lab Data Lab results reviewed: Yes I reviewed the patient's lab results. Result diagrams: 05/18/18 09:36 05/18/18 09:36 Lab Results 05/18/18 05/18/18 Range/Units 09:36 09:36 WBC 15.1 H (4.3-11.1) K/mcL RBC 5.01 H (3.82-4.97) M/mcL Hgb 12.1 (11.5-15.4) g/dL Hct 40.1 (35.3-44.9) % MCV 80.0 L (83.0-100.0) fL MCH 24.2 L (28.0-33.3) pg MCHC 30.2 L (31.6-35.5) g/dL RDW 15.6 H (11.5-14.5) % Plt Count 374 (140-400) K/mcL MPV 10.6 (9.4-12.4) fL Immature Gran % 0.5 (0-4) % Seg Neutrophils % 72.3 % Lymphocytes % 17.4 % Monocytes % 9.1 % Eosinophils % 0.5 % Basophils % 0.2 % Neutrophils # 10.9 H (1.6-8.9) K/mcL Lymphocytes # 2.6 (0.6-4.6) K/mcL Monocytes # 1.4 H (0.0-1.3) K/mcL Eosinophils # 0.1 (0.0-0.6) K/mcL Basophils # 0.0 (0.0-0.2) K/mcL Sodium 135 L (136-145) mEq/L Potassium 4.0 (3.5-5.1) mEq/L Chloride 101 (98-107) mEq/L Carbon Dioxide 26 (23-29) mEq/L BUN 16 (8-23) mg/dL Creatinine 0.89 (0.60-1.20) mg/dL Est GFR ( Amer) > 60 (> 60) Est GFR (Non-Af Amer) > 60 (> 60) BUN/Creatinine Ratio 18 (6-26) Glucose 269 H (70-105) mg/dL Calculated Osmolality 291 (280-300) Calcium 9.0 (8.6-10.3) mg/dL Troponin I < 0.03 (< 0.04) ng/mL - EKG Data EKG #1 EKG attestation: Yes I reviewed and interpreted this EKG. EKG results narrative: EKG shows sinus tachycardia, 120 bpm, normal intervals, normal axis, normal ST and T waves Critical Care Time Critical Care Time: No
[2018-05-18] MEDS ORDERED: 0.9 % Sodium Chloride 500 ML IVC ONE (09:44)
[2018-05-18 09:51] LABS: Basophils % 0.2 %; Eosinophils # 0.1 K/mcL (0.0-0.6); Eosinophils % 0.5 %; Hematocrit 40.1 % (35.3-44.9); Hemoglobin 12.1 g/dL (11.5-15.4); Immature Granulocytes % 0.5 % (0-4); Lymphocytes # 2.6 K/mcL (0.6-4.6); Lymphocytes % 17.4 %; Mean Corpuscular HGB Conc 30.2 g/dL (31.6-35.5); Mean Corpuscular Hemoglobin 24.2 pg (28.0-33.3); Mean Platelet Volume 10.6 fL (9.4-12.4); Monocytes # 1.4 K/mcL (0.0-1.3); Monocytes % 9.1 %; Neutrophils # 10.9 K/mcL (1.6-8.9); Platelet Count 374 K/mcL (140-400); Red Blood Count 5.01 M/mcL (3.82-4.97); Red Cell Distribution Width 15.6 % (11.5-14.5); Segmented Neutrophils % 72.3 %
[2018-05-18 10:12] LABS: Troponin I < 0.03 ng/mL (< 0.04)
[2018-05-18 10:13] LABS: BUN/Creatinine Ratio 18 (6-26); Blood Urea Nitrogen 16 mg/dL (8-23); Carbon Dioxide 26 mEq/L (23-29); Chloride 101 mEq/L (98-107); Glucose 269 mg/dL (70-105); Osmolality,Calculated 291 (280-300); Sodium 135 mEq/L (136-145); eGFR For Non-African Americans > 60 (> 60)
[2018-05-18] MEDS ORDERED: Benzonatate 100 MG CAPSULE PO ONE (11:29)
[2018-05-18] MEDS ORDERED: Azithromycin 250 MG TABLET PO ONE (13:01)
--- NOTE | 2018-05-18 15:50 | Internal Med History&Physical ---
Date of Encounter: 05/18/18 Time of Encounter: 11:00 Internal Medicine - H&P: HPI Chief complaint: Shortness of breath Admitted From: Home Plans for Post Hospital Care: Home History of present illness: Patient is a 63-year-old female with past medical history significant for chronic hypoxic respiratory failure on 3 L of nasal cannula, COPD and hypertension and hyperlipidemia who presents to the ER on 05/18/18 due to shortness of breath/cough. Reports a one-week history of worsening shortness of breath in addition to produ ctive cough with yellow greenish sputum. Patient also reports a subjective fever and chills. Due to shortness of breath patient was concerned and decided to come into the ER for evaluation. Patient was recently discharged on 04/24/18 due to COPD exacerbation. In the ER, patient found to have a white blood cell count of 15.1 but no acute findings on chest x-ray. Patient on baseline 3 L of nasal cannula in the ER but was reported to desat on ambulation. Therefore patient will be admitted to medical surgical floor for management of COPD exacerbation. Past Med Surg Social Fam HX - Past Medical History Medical history: COPD, hypertension Psychiatric history: no psych history - Past Surgical History Additional surgical history: ankle. carpal tunnel - Social History Smoking Status: Former smoker Alcohol use: none Drug use: none - Family History Mother Hx Family Respiratory Disorders: Yes (COPD) Hx Family Endocrine Disorder: Yes (DM) Internal Medicine - H&P: Meds Calcium Carbonate/Vitamin D3 [Calcium 600-Vit D3 400 Tablet] 1 tab PO BID 04/22/18 [History] Ferrous Sulfate 325 mg PO DAILY 04/22/18 [History] Ibandronate Sodium [Boniva] 150 mg PO QMONTH 04/22/18 [History] Metoprolol Tartrate 50 mg PO BID 04/22/18 [History] Pravastatin Sodium [Pravachol] 40 mg PO QPM 04/22/18 [History] Roflumilast [Daliresp] 500 mg PO DAILY 04/22/18 [History] Verapamil HCl [Verapamil ER] 240 mg PO DAILY 04/22/18 [History] Furosemide [Lasix] 20 mg PO DAILY #30 tablet 04/24/18 [Rx] Lisinopril [Zestril] 20 mg PO DAILY #0 04/24/18 [Rx] Multivitamin [One-Daily Multi-Vitamin] 1 tab PO DAILY 05/18/18 [History] Umeclidinium Brm/Vilanterol Tr [Anoro Ellipta 62.5-25 Mcg INH] 1 puff IH DAILY 05/18/18 [History] Allergy/AdvReac Type Severity Reaction Status Date / Time lamotrigine [From Lamictal] Allergy See Verified 05/18/18 13:44 Comments morphine AdvReac Nausea Verified 05/18/18 13:44 All Systems PM: A 10-system review of systems was performed and is negative for pertinent find ings except as documented above in the HPI. - Constitutional Vitals: Temp Pulse Resp BP Pulse Ox 99.2 F 98 18 132/62 96 05/18/18 15:08 05/18/18 15:08 05/18/18 15:08 05/18/18 15:08 05/18/18 15:08 Exam: As above - Eye Eye exam: Present: normal appearance - ENT ENT exam: Present: mucous membranes moist - Respiratory Respiratory exam: Present: CTAB. Absent: accessory muscle use, rales, rhonchi, wheezes - Cardiovascular Cardiovascular exam: Present: RRR, +S1, +S2. Absent: diastolic murmur, gallop, rubs, systolic murmur - GI/Abdominal GI/Abdominal exam: Present: normal bowel sounds, soft, no peritoneal signs. Absent: distended, tenderness - Extremities Exam Extremities exam: Absent: pedal edema - Neurological Exam Neurological exam: Present: no focal deficits - Psychiatric Psychiatric exam: Present: normal mood - Skin Skin exam: Present: normal color Internal Med - H&P Results - Labs CBC & Chem 7: 05/18/18 09:36 05/18/18 09:36 Labs: Short CBC 05/18/18 Range/Units 09:36 WBC 15.1 H (4.3-11.1) K/mcL Hgb 12.1 (11.5-15.4) g/dL Hct 40.1 (35.3-44.9) % Plt Count 374 (140-400) K/mcL Neutrophils # 10.9 H (1.6-8.9) K/mcL BMP 05/18/18 09:36 Sodium 135 L Potassium 4.0 Chloride 101 Carbon Dioxide 26 BUN 16 Creatinine 0.89 Glucose 269 H Calcium 9.0 Cardiac Enzymes 05/18/18 Range/Units 09:36 Troponin I < 0.03 (< 0.04) ng/mL - Impressions ITS Impressions Chest X-Ray 05/18/18 09:35 IMPRESSION: No acute cardiopulmonary process. D/ / 05/18/2018 09:56:06 Belia Santos MD / fady Interpreting Provider: Belia Santos MD - Assessment and plan (1) Acute exacerbation of chronic obstructive airways disease Current Visit: No Status: Acute Assessment and plan: Patient reports of difficulty breathing but is on baseline O2 requirements Patient reported to desat on ambulation by ER; chest x-ray showed no acute findi ngs Will initiate duo nebs, IV Solu-Medrol and IV azithromycin Will also order CT of the chest (2) Chronic respiratory failure with hypoxia Current Visit: Yes Status: Acute Assessment and plan: Patient on 3 L of nasal cannula which is her baseline O2 requirements (3) Hyperlipidemia Current Visit: No Status: Acute Assessment and plan: Continue home dose of pravastatin Qualifiers: Hyperlipidemia type: unspecified Qualified Code(s): E78.5 - Hyperlipidemia, unspecified (4) Hypertension Current Visit: No Status: Acute Assessment and plan: Continue home dose of lisinopril and verapamil Qualifiers: Hypertension type: essential hypertension Qualified Code(s): I10 - Essential (primary) hypertension (5) DVT prophylaxis Current Visit: Yes Status: Acute Assessment and plan: Subcutaneous heparin - Time Spent With Patient Total time spent is greater than 50% in coordination of care (as documented) at patient's floor/unit and/or counseling patient:
[2018-05-18] MEDS ORDERED: Naloxone 0.4 MG/ML INJ IVP PRN (16:15)
[2018-05-18] MEDS ORDERED: Ibandronate Sodium [Boniva] 150 MG PO SCH (16:15)
[2018-05-18] MEDS ORDERED: Simethicone 80 MG TAB.CHEW PO PRN (18:12)
[2018-05-18] MEDS: Ipratropium/Albuterol Neb 3 ML IH SCH ×2 (20:03→23:03)
[2018-05-18] MEDS ORDERED: NON-FORMULARY MEDICATION 1 EACH EACH (Calcium Carbonate/Vitamin D3 [Calcium 600-Vit D3 400 PO SCH (21:00)
[2018-05-18] MEDS: *HR* Heparin 5,000 UNIT/ML VIAL SQ SCH (22:24)
[2018-05-18] MEDS: Benzonatate 100 MG CAPSULE PO PRN (23:13)
[2018-05-18] MEDS: methylPREDNISolone 125 MG/2 ML VIAL IVP SCH (23:13)
[2018-05-18] MEDS: Docusate Oral Soln 100 MG/10 ML UDC PO SCH (23:58)
[2018-05-19 03:56] LABS: Basophils % 0.1 %; Hematocrit 37.6 % (35.3-44.9); Hemoglobin 11.5 g/dL (11.5-15.4); Immature Granulocytes % 0.4 % (0-4); Lymphocytes # 0.7 K/mcL (0.6-4.6); Lymphocytes % 8.2 %; Mean Corpuscular HGB Conc 30.6 g/dL (31.6-35.5); Mean Corpuscular Hemoglobin 24.3 pg (28.0-33.3); Mean Corpuscular Volume 79.3 fL (83.0-100.0); Mean Platelet Volume 10.7 fL (9.4-12.4); Monocytes # 0.2 K/mcL (0.0-1.3); Monocytes % 2.7 %; Neutrophils # 7.9 K/mcL (1.6-8.9); Platelet Count 320 K/mcL (140-400); Red Blood Count 4.74 M/mcL (3.82-4.97); Red Cell Distribution Width 15.5 % (11.5-14.5); Segmented Neutrophils % 88.6 %
[2018-05-19 04:13] LABS: BUN/Creatinine Ratio 22 (6-26); Blood Urea Nitrogen 20 mg/dL (8-23); Carbon Dioxide 24 mEq/L (23-29); Chloride 103 mEq/L (98-107); Glucose 384 mg/dL (70-105); Osmolality,Calculated 298 (280-300); Potassium 4.4 mEq/L (3.5-5.1); Sodium 135 mEq/L (136-145); eGFR For Non-African Americans > 60 (> 60)
[2018-05-19] MEDS: Ipratropium/Albuterol Neb 3 ML IH SCH ×5 (04:13→19:54)
[2018-05-19] MEDS: *HR* Heparin 5,000 UNIT/ML VIAL SQ SCH ×3 (05:42→22:52)
[2018-05-19] MEDS: methylPREDNISolone 125 MG/2 ML VIAL IVP SCH ×3 (07:42→22:52)
[2018-05-19] MEDS: Furosemide 20 MG TABLET PO SCH (07:42)
[2018-05-19] MEDS: Multivit/Ca/Min/Fe/FA 1 TAB TABLET PO SCH (07:42)
[2018-05-19] MEDS: Verapamil ER (24 HR) 240 MG TABLET.ER PO SCH (07:42)
[2018-05-19] MEDS: Cholecalciferol (D-3) 1,000 UNIT TABLET PO SCH (07:42)
[2018-05-19] MEDS: Docusate Oral Soln 100 MG/10 ML UDC PO SCH (07:42)
[2018-05-19] MEDS: Benzonatate 100 MG CAPSULE PO PRN (07:42)
[2018-05-19] MEDS: Lisinopril 20 MG TABLET PO SCH (07:42)
[2018-05-19] MEDS: Roflumilast [Daliresp] 500 MCG PO SCH (07:43)
[2018-05-19] MEDS: Umeclidinium Brm/Vilanterol Tr [Anoro Ellipta 62.5-2 IH SCH (07:43)
[2018-05-19] MEDS ORDERED: D5% in Water 1,000 ML IVC PRN (10:44)
[2018-05-19] MEDS ORDERED: Dextrose Gel 15 GM/37.5 ML TUBE PO PRN ×2 (10:44)
[2018-05-19] MEDS ORDERED: *HR* Dextrose 50 % in Water (Syg) 50 ML SYRINGE IVP PRN (10:44)
[2018-05-19 11:24] LABS: Adenovirus Not Detected (Not Detect); Bordetella Pertussis Not Detected (Not Detect); Chlamydophila pneumoniae Not Detected (Not Detect); Coronavirus 229E Not Detected (Not Detect); Coronavirus HKU1 Not Detected (Not Detect); Coronavirus NL63 Not Detected (Not Detect); Coronavirus OC43 Not Detected (Not Detect); Human Metapneumovirus Not Detected (Not Detect); Human Rhinovirus/Enterovirus Not Detected (Not Detect); Influenza A Subtype 2009 H1 Not Detected (Not Detect); Influenza A Untypeable Not Detected (Not Detect); Influenza B Not Detected (Not Detect); Mycoplasma pneumoniae Not Detected (Not Detect); Parainfluenza Virus 1 Not Detected (Not Detect); Parainfluenza Virus 2 Not Detected (Not Detect); Parainfluenza Virus 3 Not Detected (Not Detect); Parainfluenza Virus 4 Not Detected (Not Detect); Respiratory Syncytial Virus Not Detected (Not Detect)
[2018-05-19] MEDS: cefTRIAXone 1,000 MG in Water for inj. (sterile) 20 ML 10 ML IVP SCH (12:09)
[2018-05-19] MEDS: Insulin LISPRO 300 UNITS/3 ML VIAL SQ SCH ×3 (12:09→21:32)
[2018-05-19] MEDS: Azithromycin 500 MG in D5% in Water 250 ML IVPB SCH (12:09)
--- NOTE | 2018-05-19 13:17 | Internal Med Progress Note ---
Hospitalist Progress Note - Encounter Date of Encounter: 05/19/18 Time of Encounter: 08:30 - Subjective Interval History: Ms. Kingsley is a 63 y/o F with known past medical history of COPD, chronic hypoxic respiratory failure on 3 lit oxygen dependent, HTN and HLD pt presented to ER with progressively worsening shortness of breath and cough with expecto ration. Patient was admitted in the hospital and started her on IV steroids and empirical antibiotic . Patient stated she is feeling little better today however she still having moderate dyspnea on exertion and shortness of breath - Exam Vitals: Temp Pulse Resp BP Pulse Ox 97.5 F L 79 20 117/58 96 05/19/18 11:48 05/19/18 11:48 05/19/18 11:48 05/19/18 11:48 05/19/18 11:48 Exam: Gen: Alert, awake, Oriented to time,place and person Chest: Diminished breath sounds B/L, moderate to severe wheezing, No crackles, Ronchi+ Heart: S1S2+ RRR No murmurs Abd: Soft, NT, BS +, No organomegaly Ext: No edema, pulses are palpable, No calf tenderness Neuro : Benign findings Skin: No rash. - Assessment and Plan (1) Acute exacerbation of chronic obstructive airways disease Current Visit: No Status: Acute Assessment and Plan: still having moderate wheezing cont IV steroids.. Cut down the dose to 40mg Q8h4 cont Duoneb and O2 Encouraged to do more frequent incentive spirometry (2) Acute bronchitis Current Visit: No Status: Acute Assessment and Plan: Purulent bronchitis Cont symptomatic and supportive care will check respiratory viral panel placed her on empirical antibiotic Azithromycin and ceftriaxone (3) Hyperglycemia Current Visit: Yes Status: Acute Assessment and Plan: Uncontrolled BS due to Steroids Placed on ISS (4) Hypertension Current Visit: No Status: Acute Assessment and Plan: Continue home dose of lisinopril and verapamil (5) Hyperlipidemia Current Visit: No Status: Acute Assessment and Plan: Continue home dose of pravastatin (6) Chronic respiratory failure with hypoxia Current Visit: Yes Status: Acute Assessment and Plan: Patient on 3 L of nasal cannula which is her baseline O2 requirements (7) DVT prophylaxis Current Visit: Yes Status: Acute Assessment and Plan: Subcutaneous heparin - Time Spent with Patient Total time spent is greater than 50% in coordination of care (as documented) at patient's floor/unit and/or counseling patient: Internal Medicine: Result - Labs CBC & Chem 7: 05/19/18 03:19 05/19/18 03:19 Labs: Short CBC 05/19/18 Range/Units 03:19 WBC 8.9 (4.3-11.1) K/mcL Hgb 11.5 (11.5-15.4) g/dL Hct 37.6 (35.3-44.9) % Plt Count 320 (140-400) K/mcL Neutrophils # 7.9 (1.6-8.9) K/mcL BMP 05/19/18 03:19 Sodium 135 L Potassium 4.4 Chloride 103 Carbon Dioxide 24 BUN 20 Creatinine 0.89 Glucose 384 H Calcium 9.0 - Impressions Impressions Chest X-Ray 05/18/18 09:35 IMPRESSION: No acute cardiopulmonary process. D/ / 05/18/2018 09:56:06 Belia Santos MD / fady Interpreting Provider: Belia Santos MD Chest CT 05/18/18 16:16 IMPRESSION: 1. Breathing motion degrades study quality. 2. Patchy areas of scar formation lingula left upper lobe and right middle lobe as well as sequela from old granulomatous disease. 3. No CT evidence of acute pulmonary disease. D/ / David Hebert / David Hebert Interpreting Provider: David Hebert Consult Discharge Plan - Plan Referrals: Seth Amin MD [Primary Care Provider] - 05/23/18 9:45 am (2) Acute bronchitis Qualifiers: Bronchitis organism: unspecified organism Qualified Code(s): J20.9 - Acute bronchitis, unspecified (4) Hypertension Qualifiers: Hypertension type: essential hypertension Qualified Code(s): I10 - Essential (primary) hypertension (5) Hyperlipidemia Qualifiers: Hyperlipidemia type: unspecified Qualified Code(s): E78.5 - Hyperlipidemia, unspecified
[2018-05-19] MEDS ORDERED: traMADol 50 MG TABLET PO ONE (21:00)
--- NOTE | 2018-05-19 21:26 | Electrocardiograph Report ---
[address] [address] Test Date: 2018-05-18 Pat Name: Annemarie Kingsley Department: EXAM9 Room: 3B22 Gender: F [employer]: : [id number] Requested By: Ivan Edgar Order Number: [id number] Reading MD: Lori Bautista Measurements Intervals [place] Rate: 120 P: 71 [place]: 160 QRS: 62 QRSD: 91 T: 82 QT: 334 QTc: 472 Interpretive Statements Sinus tachycardia Low voltage, extremity and precordial leads Electronically Signed On 05-19-2018 21:25:26 EST by Lori Bautista
[2018-05-20] MEDS: Ipratropium/Albuterol Neb 3 ML IH SCH ×7 (00:27→23:37)
[2018-05-20 04:46] LABS: Basophils % 0.1 %; Hematocrit 35.2 % (35.3-44.9); Hemoglobin 10.7 g/dL (11.5-15.4); Lymphocytes # 0.9 K/mcL (0.6-4.6); Lymphocytes % 6.4 %; Mean Corpuscular HGB Conc 30.4 g/dL (31.6-35.5); Mean Corpuscular Hemoglobin 24.2 pg (28.0-33.3); Mean Corpuscular Volume 79.6 fL (83.0-100.0); Mean Platelet Volume 11.2 fL (9.4-12.4); Monocytes # 0.7 K/mcL (0.0-1.3); Neutrophils # 12.9 K/mcL (1.6-8.9); Platelet Count 395 K/mcL (140-400); Red Blood Count 4.42 M/mcL (3.82-4.97); Red Cell Distribution Width 15.7 % (11.5-14.5); Segmented Neutrophils % 87.5 %
[2018-05-20 05:00] LABS: BUN/Creatinine Ratio 31 (6-26); Blood Urea Nitrogen 33 mg/dL (8-23); Carbon Dioxide 22 mEq/L (23-29); Chloride 104 mEq/L (98-107); Glucose 492 mg/dL (70-105); Osmolality,Calculated 313 (280-300); Potassium 4.5 mEq/L (3.5-5.1); Sodium 137 mEq/L (136-145); eGFR For Non-African Americans 51 (> 60)
[2018-05-20] MEDS: *HR* Heparin 5,000 UNIT/ML VIAL SQ SCH ×3 (05:53→21:33)
[2018-05-20] MEDS: Docusate Oral Soln 100 MG/10 ML UDC PO SCH (08:22)
[2018-05-20] MEDS: Multivit/Ca/Min/Fe/FA 1 TAB TABLET PO SCH (08:23)
[2018-05-20] MEDS: predniSONE 20 MG TABLET PO SCH (08:23)
[2018-05-20] MEDS: Lisinopril 20 MG TABLET PO SCH (08:23)
[2018-05-20] MEDS: Cholecalciferol (D-3) 1,000 UNIT TABLET PO SCH (08:23)
[2018-05-20] MEDS: Furosemide 20 MG TABLET PO SCH (08:23)
[2018-05-20] MEDS: Verapamil ER (24 HR) 240 MG TABLET.ER PO SCH (08:23)
[2018-05-20] MEDS: cefTRIAXone 1,000 MG in Water for inj. (sterile) 20 ML 10 ML IVP SCH (08:23)
[2018-05-20] MEDS: Roflumilast [Daliresp] 500 MCG PO SCH (08:24)
[2018-05-20] MEDS: Umeclidinium Brm/Vilanterol Tr [Anoro Ellipta 62.5-2 IH SCH (08:24)
[2018-05-20] MEDS: Insulin LISPRO 300 UNITS/3 ML VIAL SQ SCH ×4 (08:26→21:32)
--- NOTE | 2018-05-20 09:34 | Internal Med Progress Note ---
Hospitalist Progress Note - Encounter Date of Encounter: 05/20/18 Time of Encounter: 08:00 - Subjective Interval History: Ms. Kingsley is a 63 y/o F with known past medical history of COPD, chronic hypoxic respiratory failure on 3 lit oxygen dependent, HTN and HLD pt presented to ER with progressively worsening shortness of breath and cough with expecto ration. Patient was admitted in the hospital and started her on IV steroids and empirical antibiotic . Patient stated she is feeling little better today however she still having moderate dyspnea on exertion and shortness of breath. No events over night. Does have cough with greenish expectoration. - Exam Vitals: Temp Pulse Resp BP Pulse Ox 98.0 F 97 20 136/48 94 05/20/18 07:10 05/20/18 07:10 05/20/18 07:10 05/20/18 07:10 05/20/18 07:10 Exam: Gen: Alert, awake, Oriented to time,place and person Chest: Diminished breath sounds B/L, moderate wheezing, No crackles, Ronchi+ Heart: S1S2+ RRR No murmurs Abd: Soft, NT, BS +, No organomegaly Ext: No edema, pulses are palpable, No calf tenderness Neuro : Benign findings Skin: No rash. - Assessment and Plan (1) Acute exacerbation of chronic obstructive airways disease Current Visit: No Status: Acute Assessment and Plan: slowly improving switched to PO steroids today cont Duoneb and O2 Encouraged to do more frequent incentive spirometry (2) Acute bronchitis Current Visit: No Status: Acute Assessment and Plan: Purulent bronchitis- mostly bacterial Cont symptomatic and supportive care Reviewed respiratory viral panel - negative Cont empirical antibiotic Azithromycin and ceftriaxone (3) Chronic respiratory failure with hypoxia Current Visit: Yes Status: Acute Assessment and Plan: Patient on 3 L of nasal cannula which is her baseline O2 requirements (4) Hyperglycemia Current Visit: Yes Status: Acute Assessment and Plan: Uncontrolled BS due to Steroids Concerning for DM2 too will check HbA1C Cont ISS Added Levemir 15 U BID ADA diet cut down on steroids (5) Hypertension Current Visit: No Status: Acute Assessment and Plan: Continue home dose of lisinopril and verapamil (6) Hyperlipidemia Current Visit: No Status: Acute Assessment and Plan: Continue home dose of pravastatin (7) DVT prophylaxis Current Visit: Yes Status: Acute Assessment and Plan: Subcutaneous heparin - Time Spent with Patient Total time spent is greater than 50% in coordination of care (as documented) at patient's floor/unit and/or counseling patient: Internal Medicine: Result - Labs CBC & Chem 7: 05/20/18 04:07 05/20/18 04:07 Labs: Short CBC 05/20/18 Range/Units 04:07 WBC 14.7 H D (4.3-11.1) K/mcL Hgb 10.7 L (11.5-15.4) g/dL Hct 35.2 L (35.3-44.9) % Plt Count 395 (140-400) K/mcL Neutrophils # 12.9 H (1.6-8.9) K/mcL BMP 05/20/18 04:07 Sodium 137 Potassium 4.5 Chloride 104 Carbon Dioxide 22 L BUN 33 H Creatinine 1.07 Glucose 492 H Calcium 9.0 Consult Discharge Plan - Plan Referrals: Seth Amin MD [Primary Care Provider] - 05/23/18 9:45 am (2) Acute bronchitis Qualifiers: Bronchitis organism: unspecified organism Qualified Code(s): J20.9 - Acute bronchitis, unspecified (5) Hypertension Qualifiers: Hypertension type: essential hypertension Qualified Code(s): I10 - Essential (primary) hypertension (6) Hyperlipidemia Qualifiers: Hyperlipidemia type: unspecified Qualified Code(s): E78.5 - Hyperlipidemia, unspecified
[2018-05-20] MEDS: Benzonatate 100 MG CAPSULE PO PRN (10:19)
[2018-05-20] MEDS: Insulin DETEMIR 100 UNIT/ML X5UNITS SQ SCH ×2 (10:19→21:32)
[2018-05-20] MEDS: Azithromycin 500 MG in D5% in Water 250 ML IVPB SCH (12:29)
[2018-05-21] MEDS: Ipratropium/Albuterol Neb 3 ML IH SCH ×3 (03:45→11:13)
[2018-05-21 04:38] LABS: Hematocrit 35.8 % (35.3-44.9); Hemoglobin 10.7 g/dL (11.5-15.4); Mean Corpuscular HGB Conc 29.9 g/dL (31.6-35.5); Mean Corpuscular Hemoglobin 24.1 pg (28.0-33.3); Mean Corpuscular Volume 80.6 fL (83.0-100.0); Mean Platelet Volume 11.3 fL (9.4-12.4); Platelet Count 388 K/mcL (140-400); Red Blood Count 4.44 M/mcL (3.82-4.97); Red Cell Distribution Width 15.6 % (11.5-14.5)
[2018-05-21] MEDS: *HR* Heparin 5,000 UNIT/ML VIAL SQ SCH (05:19)
[2018-05-21 07:07] VITALS: BP 146/80
[2018-05-21 08:34] LABS: Estimated Average Glucose 220 mg/dl; Hemoglobin A1C 9.3 %
[2018-05-21] MEDS: Verapamil ER (24 HR) 240 MG TABLET.ER PO SCH (08:45)
[2018-05-21] MEDS: Multivit/Ca/Min/Fe/FA 1 TAB TABLET PO SCH (08:45)
[2018-05-21] MEDS: Lisinopril 20 MG TABLET PO SCH (08:45)
[2018-05-21] MEDS: cefTRIAXone 1,000 MG in Water for inj. (sterile) 20 ML 10 ML IVP SCH (08:46)
[2018-05-21] MEDS: Furosemide 20 MG TABLET PO SCH (08:46)
[2018-05-21] MEDS: Cholecalciferol (D-3) 1,000 UNIT TABLET PO SCH (08:46)
[2018-05-21] MEDS: predniSONE 20 MG TABLET PO SCH (08:46)
[2018-05-21] MEDS: Insulin LISPRO 300 UNITS/3 ML VIAL SQ SCH (08:47)
[2018-05-21] MEDS: Docusate Oral Soln 100 MG/10 ML UDC PO SCH (08:47)
[2018-05-21] MEDS: Umeclidinium Brm/Vilanterol Tr [Anoro Ellipta 62.5-2 IH SCH (08:48)
[2018-05-21] MEDS: Roflumilast [Daliresp] 500 MCG PO SCH (08:48)
[2018-05-21] MEDS: Insulin DETEMIR 100 UNIT/ML X5UNITS SQ SCH (08:48)
--- NOTE | 2018-05-21 10:48 | Discharge Summary ---
- NOTES TO OUTPATIENT PROVIDER Notes to Outpatient Provider: Follow with PCP in 3 days. Please take oral antibiotic for 3 more days, steroids and Mucinex as scheduled. You do have new onset DM2, your Hb A1C 9.3.. So we started you on Insulin Levemir 15 U SQ BID and Metformin 500mg PO BID. Pelase follow up with your PCP for further m edication dose adjustments for your DM2. Also pelase check your blood sugars three times a day and show them to your PCP Orders not resulted at time of discharge: Pending orders 05/18/18 09:36 Culture,Blood [] Stat Date of Encounter: 05/21/18 Time of Encounter: 10:30 - Discharge Diagnosis (1) Acute exacerbation of chronic obstructive airways disease Priority: Primary Status: Acute (2) Acute bronchitis Priority: Primary Status: Acute Qualifiers: Bronchitis organism: unspecified organism Qualified Code(s): J20.9 - Acute bronchitis, unspecified (3) Chronic respiratory failure with hypoxia Priority: Secondary Status: Acute (4) Hyperglycemia Priority: Secondary Status: Acute (5) Hypertension Priority: Secondary Status: Acute Qualifiers: Hypertension type: essential hypertension Qualified Code(s): I10 - Essential (primary) hypertension (6) Hyperlipidemia Priority: Secondary Status: Acute Qualifiers: Hyperlipidemia type: unspecified Qualified Code(s): E78.5 - Hyperlipidemia, unspecified (7) DVT prophylaxis Priority: Secondary Status: Acute (8) Diabetes type 2, controlled Priority: Secondary Status: Acute Qualifiers: Diabetes mellitus jail insulin use: unspecified jail insulin use status Diabetes mellitus complication status: without complication Qualified Code(s): E11.9 - Type 2 diabetes mellitus without complications Hospital course: Ms. Kingsley is a 63 y/o F with known past medical history of COPD, chronic hypoxic respiratory failure on 3 lit oxygen dependent, HTN and HLD pt presented to ER with progressively worsening shortness of breath and cough with expectoration. Patient was admitted in the hospital and started her on IV steroids and empirical antibiotic. Her respiratory viral panel came back is negative. Her blood cx are no growth so far. Pt remained afebrile. She is currnelty on 3 lit O2. Still has severe cough, recommend to continue symptomatic and supportive care. Patient does have uncontrolled blood sugars, most likely due to steroids. However her hemoglobin A-1 C came back as 9.3 , does look like she has a new onset diabetes type II and require insulin. She was started on long-acting insulin Levemir 15 units b.i.d. along with oral medication metformin 500 mg b.i.d. - Time Spent with Patient Total time spent providing and/or coordinating discharge services: - Discharge Medications Prescriptions: Benzonatate [Tessalon] 100 mg PO TID PRN #30 capsule PRN Reason: Cough GuaiFENesin ER [Mucinex] 600 mg PO BID #60 tbbp.12hr Insulin DETEMIR [Levemir Flextouch] 15 unit SQ BID #1 insuln.pen levoFLOXacin [Levaquin] 500 mg PO DAILY #3 tablet metFORMIN [Glucophage] 500 mg PO BIDWM #60 tablet predniSONE [PredniSONE] 40 mg PO DAILY #10 tablet Home Medications: Calcium Carbonate/Vitamin D3 [Calcium 600-Vit D3 400 Tablet] 1 tab PO BID 04/22/18 [History] Ferrous Sulfate 325 mg PO DAILY 04/22/18 [History] Ibandronate Sodium [Boniva] 150 mg PO QMONTH 04/22/18 [History] Metoprolol Tartrate 50 mg PO BID 04/22/18 [History] Pravastatin Sodium [Pravachol] 40 mg PO QPM 04/22/18 [History] Roflumilast [Daliresp] 500 mg PO DAILY 04/22/18 [History] Verapamil HCl [Verapamil ER] 240 mg PO DAILY 04/22/18 [History] Furosemide [Lasix] 20 mg PO DAILY #30 tablet 04/24/18 [Rx] Lisinopril [Zestril] 20 mg PO DAILY #0 04/24/18 [Rx] Multivitamin [One-Daily Multi-Vitamin] 1 tab PO DAILY 05/18/18 [History] Umeclidinium Brm/Vilanterol Tr [Anoro Ellipta 62.5-25 Mcg INH] 1 puff IH DAILY 05/18/18 [History] Benzonatate [Tessalon] 100 mg PO TID PRN #30 capsule 05/21/18 [Rx] GuaiFENesin ER [Mucinex] 600 mg PO BID #60 tbbp.12hr 05/21/18 [Rx] Insulin DETEMIR [Levemir Flextouch] 15 unit SQ BID #1 insuln.pen 05/21/18 [Rx] levoFLOXacin [Levaquin] 500 mg PO DAILY #3 tablet 05/21/18 [Rx] metFORMIN [Glucophage] 500 mg PO BIDWM #60 tablet 05/21/18 [Rx] predniSONE [PredniSONE] 40 mg PO DAILY #10 tablet 05/21/18 [Rx] Allergies/Adverse Reactions: Allergy/AdvReac Type Severity Reaction Status Date / Time lamotrigine [From Lamictal] Allergy See Verified 05/18/18 13:44 Comments morphine AdvReac Nausea Verified 05/18/18 13:44 Date of admission: 05/18/18 13:23 Primary care physician: Seth Amin MD - Constitutional Vitals: Temp Pulse Resp BP Pulse Ox 98.0 F 73 18 146/80 95 05/21/18 07:07 05/21/18 07:07 05/21/18 07:49 05/21/18 07:07 05/21/18 07:49 General appearance: Present: cooperative, A&O X 3, no acute distress Exam: Gen: Alert, awake, Oriented to time,place and person Chest: Diminished breath sounds B/L, mild wheezing, No crackles, Ronchi+ Heart: S1S2+ RRR No murmurs Abd: Soft, NT, BS +, No organomegaly Ext: No edema, pulses are palpable, No calf tenderness Neuro : Benign findings Skin: No rash. - Patient Status Disposition: Home Health Service Condition: Good Overall status at discharge: patient is back to baseline - Discharge Instructions Instructions: Diabetes Mellitus Type 2 in Adults (DC) Follow Up With: Seth Amin MD [Primary Care Provider] - 05/23/18 9:45 am - Diet and Activity Activity: increase activity as tolerated Diet: low salt diet
--- NOTE | 2018-05-21 10:55 | Physician Discharge Referral ---
Home Health/Hosp Referral Info Transfer to: Home Health Provider in Charge Post Discharge: PCP - Diagnosis (1) Acute exacerbation of chronic obstructive airways disease Status: Acute (2) Acute bronchitis Status: Acute (3) Chronic respiratory failure with hypoxia Status: Acute (4) Hyperglycemia Status: Acute (5) Hypertension Status: Acute (6) Hyperlipidemia Status: Acute (7) DVT prophylaxis Status: Acute (8) Diabetes type 2, controlled Status: Acute - Respiratory Orders Smoking Cessation: Smoking cessation has been advised. For more information, call the [place] Tobacco Quit Line at 9-511-VLQU-NOW. - Services Needed Following services are medically necessary services: Nursing, Home Health Aide - Transfer Medications Prescriptions: Benzonatate [Tessalon] 100 mg PO TID PRN #30 capsule PRN Reason: Cough GuaiFENesin ER [Mucinex] 600 mg PO BID #60 tbbp.12hr Insulin DETEMIR [Levemir Flextouch] 15 unit SQ BID #1 insuln.pen levoFLOXacin [Levaquin] 500 mg PO DAILY #3 tablet metFORMIN [Glucophage] 500 mg PO BIDWM #60 tablet predniSONE [PredniSONE] 40 mg PO DAILY #10 tablet Home Medications: Calcium Carbonate/Vitamin D3 [Calcium 600-Vit D3 400 Tablet] 1 tab PO BID 04/22/18 [History] Ferrous Sulfate 325 mg PO DAILY 04/22/18 [History] Ibandronate Sodium [Boniva] 150 mg PO QMONTH 04/22/18 [History] Metoprolol Tartrate 50 mg PO BID 04/22/18 [History] Pravastatin Sodium [Pravachol] 40 mg PO QPM 04/22/18 [History] Roflumilast [Daliresp] 500 mg PO DAILY 04/22/18 [History] Verapamil HCl [Verapamil ER] 240 mg PO DAILY 04/22/18 [History] Furosemide [Lasix] 20 mg PO DAILY #30 tablet 04/24/18 [Rx] Lisinopril [Zestril] 20 mg PO DAILY #0 04/24/18 [Rx] Multivitamin [One-Daily Multi-Vitamin] 1 tab PO DAILY 05/18/18 [History] Umeclidinium Brm/Vilanterol Tr [Anoro Ellipta 62.5-25 Mcg INH] 1 puff IH DAILY 05/18/18 [History] Benzonatate [Tessalon] 100 mg PO TID PRN #30 capsule 05/21/18 [Rx] GuaiFENesin ER [Mucinex] 600 mg PO BID #60 tbbp.12hr 05/21/18 [Rx] Insulin DETEMIR [Levemir Flextouch] 15 unit SQ BID #1 insuln.pen 05/21/18 [Rx] levoFLOXacin [Levaquin] 500 mg PO DAILY #3 tablet 05/21/18 [Rx] metFORMIN [Glucophage] 500 mg PO BIDWM #60 tablet 05/21/18 [Rx] predniSONE [PredniSONE] 40 mg PO DAILY #10 tablet 05/21/18 [Rx] Allergies/Adverse Reactions: Allergy/AdvReac Type Severity Reaction Status Date / Time lamotrigine [From Lamictal] Allergy See Verified 05/18/18 13:44 Comments morphine AdvReac Nausea Verified 05/18/18 13:44 Certification: Further, I certify that my clinical findings support that this patient is homebound (i.e. absences from home require considerable and taxing effort and are for medical reasons or restorationism services or infrequently or short duration when for other reasons) because: Homebound Reason: Patient requires assistance of a person or device to safely leave home Attestation: My signature below is to certify that this patient is under my care and that I, or nurse practitioner, or a physician's assistant bookkeeper working with me, has a [id number] encounter with this patient.
== END 2018-05-21 13:30 | disposition home health service (06) ==
LOC: EMEROOARM 09:25 → 3BNU 09:25 → SUATTDRO 13:23 → 3BNU 13:39
PROVIDERS: ADMIT Hospitalist; ATTEND Family Medicine

== ENCOUNTER 2019-08-05 14:29 | Inpatient (IN) ==
[2019-08-05] MEDS ORDERED: Ipratropium/Albuterol Neb 3 ML IH ONE (15:12)
[2019-08-05] MEDS ORDERED: methylPREDNISolone 125 MG/2 ML VIAL IVP ONE (15:12)
[2019-08-05 15:27] LABS: Basophils % 0.2 %; Hematocrit 42.6 % (35.3-44.9); Hemoglobin 12.8 g/dL (11.5-15.4); Immature Granulocytes % 0.3 % (0-4); Lymphocytes # 0.8 K/mcL (0.6-4.6); Lymphocytes % 11.6 %; Mean Corpuscular Hemoglobin 25.1 pg (28.0-33.3); Mean Corpuscular Volume 83.7 fL (83.0-100.0); Mean Platelet Volume 10.9 fL (9.4-12.4); Monocytes # 0.3 K/mcL (0.0-1.3); Monocytes % 4.5 %; Neutrophils # 5.5 K/mcL (1.6-8.9); Platelet Count 339 K/mcL (140-400); Red Blood Count 5.09 M/mcL (3.82-4.97); Red Cell Distribution Width 14.7 % (11.5-14.5); Segmented Neutrophils % 83.4 %; White Blood Count 6.6 K/mcL (4.3-11.1)
[2019-08-05 15:34] LABS: VBG HCO3 25 mEq/L (21-27); VBG PCO2 54 mmHg (41-51); VBG PH 7.28 pH Units (7.32-7.42); VBG PO2 81 mmHg (25-50)
[2019-08-05 15:53] LABS: BUN/Creatinine Ratio 28 (6-26); Blood Urea Nitrogen 30 mg/dL (8-23); Calcium 9.5 mg/dL (8.6-10.3); Carbon Dioxide 24 mEq/L (23-29); Chloride 99 mEq/L (98-107); Glucose 167 mg/dL (70-105); Osmolality,Calculated 300 (280-300); Potassium 5.2 mEq/L (3.5-5.1); Sodium 140 mEq/L (136-145); Troponin I < 0.03 ng/mL (< 0.04); eGFR For African Americans > 60 (> 60); eGFR For Non-African Americans 51 (> 60)
[2019-08-05] MEDS ORDERED: 0.9 % Sodium Chloride 1,000 ML IVC ONE ×2 (16:10→22:57)
[2019-08-05] MEDS ORDERED: Azithromycin 500 MG in D5% in Water 250 ML IVPB ONE (16:12)
[2019-08-05] MEDS ORDERED: Naloxone 0.4 MG/ML INJ IVP PRN (16:59)
[2019-08-05] MEDS: Ipratropium/Albuterol Neb 3 ML IH SCH (20:42)
[2019-08-05] MEDS ORDERED: *HR* Dextrose 50 % in Water (Syg) 50 ML SYRINGE IVP PRN (21:47)
[2019-08-05] MEDS ORDERED: D5% in Water 1,000 ML IVC PRN (21:47)
[2019-08-05] MEDS ORDERED: Dextrose Gel 15 GM/37.5 ML TUBE PO PRN ×2 (21:47)
[2019-08-05] MEDS: Budesonide/Formoterol 160/4.5 1 PUFF INH IH SCH (22:28)
[2019-08-05] MEDS: Insulin LISPRO 300 UNITS/3 ML VIAL SQ SCH (22:43)
[2019-08-05] MEDS: MethylPREDNISolone 40 MG/ML VIAL IVP SCH (23:19)
[2019-08-06] MEDS: Ipratropium/Albuterol Neb 3 ML IH SCH ×7 (00:14→23:56)
[2019-08-06 01:33] LABS: Basophils % 0.2 %; Hematocrit 38.3 % (35.3-44.9); Hemoglobin 11.5 g/dL (11.5-15.4); Immature Granulocytes % 0.5 % (0-4); Lymphocytes # 0.6 K/mcL (0.6-4.6); Mean Corpuscular Hemoglobin 25.5 pg (28.0-33.3); Mean Corpuscular Volume 84.9 fL (83.0-100.0); Monocytes # 0.3 K/mcL (0.0-1.3); Monocytes % 4.7 %; Neutrophils # 5.4 K/mcL (1.6-8.9); Platelet Count 295 K/mcL (140-400); Red Blood Count 4.51 M/mcL (3.82-4.97); Red Cell Distribution Width 14.9 % (11.5-14.5); Segmented Neutrophils % 84.6 %; White Blood Count 6.3 K/mcL (4.3-11.1)
[2019-08-06] MEDS ORDERED: 0.9 % Sodium Chloride 1,000 ML IVC ONE ×2 (01:53→04:25)
[2019-08-06 01:54] LABS: Calcium 8.6 mg/dL (8.6-10.3); Magnesium 1.7 mg/dL (1.6-2.6); Phosphorous 3.1 mg/dL (2.7-4.5); Potassium 4.1 mEq/L (3.5-5.1)
[2019-08-06] MEDS ORDERED: Ketorolac 15 MG/ML VIAL IVP ONE (02:02)
[2019-08-06 02:21] LABS: Adenovirus Not Detected (Not Detect); Bordetella Pertussis Not Detected (Not Detect); Chlamydophila pneumoniae Not Detected (Not Detect); Coronavirus 229E Not Detected (Not Detect); Coronavirus HKU1 Not Detected (Not Detect); Coronavirus NL63 Not Detected (Not Detect); Coronavirus OC43 Not Detected (Not Detect); Human Metapneumovirus Not Detected (Not Detect); Human Rhinovirus/Enterovirus Not Detected (Not Detect); Influenza A Subtype 2009 H1 Not Detected (Not Detect); Influenza B Not Detected (Not Detect); Mycoplasma pneumoniae Not Detected (Not Detect); Parainfluenza Virus 1 Not Detected (Not Detect); Parainfluenza Virus 2 Not Detected (Not Detect); Parainfluenza Virus 3 Not Detected (Not Detect); Parainfluenza Virus 4 DETECTED (Not Detect); Respiratory Syncytial Virus Not Detected (Not Detect)
[2019-08-06] MEDS ORDERED: Insulin DETEMIR 100 UNIT/ML X5UNITS SQ ONE (02:35)
[2019-08-06] MEDS: Budesonide/Formoterol 160/4.5 1 PUFF INH IH SCH ×2 (07:22→19:38)
[2019-08-06] MEDS ORDERED: ROFLUMILAST 500 MG PO SCH (09:00)
[2019-08-06] MEDS: Insulin LISPRO 300 UNITS/3 ML VIAL SQ SCH ×4 (09:01→20:57)
[2019-08-06 09:13] LABS: Estimated Average Glucose 166 mg/dl
[2019-08-06] MEDS: 0.9 % Sodium Chloride 1,000 ML IVC SCH ×2 (09:36→20:56)
[2019-08-06] MEDS: MethylPREDNISolone 40 MG/ML VIAL IVP SCH ×3 (09:36→23:13)
[2019-08-06] MEDS: Verapamil ER (24 HR) 240 MG TABLET.ER PO SCH (09:36)
[2019-08-06] MEDS: Multivit/Ca/Min/Fe/FA 1 TAB TABLET PO SCH (09:36)
[2019-08-06] MEDS: Lisinopril 20 MG TABLET PO SCH (09:36)
[2019-08-06] MEDS: *HR* Heparin 5,000 UNIT/ML VIAL SQ SCH (17:55)
[2019-08-06] MEDS: Azithromycin 500 MG in 0.9 % Sodium Chloride 250 ML IVPB SCH (17:55)
[2019-08-06] MEDS: Menthol 9.1 MG LOZENGE PO PRN (23:13)
[2019-08-07] MEDS: Ipratropium/Albuterol Neb 3 ML IH SCH ×5 (04:17→20:31)
[2019-08-07 04:27] LABS: Basophils % 0.1 %; Hematocrit 37.6 % (35.3-44.9); Hemoglobin 11.4 g/dL (11.5-15.4); Immature Granulocytes % 0.9 % (0-4); Lymphocytes # 0.7 K/mcL (0.6-4.6); Lymphocytes % 4.6 %; Mean Corpuscular HGB Conc 30.3 g/dL (31.6-35.5); Mean Corpuscular Hemoglobin 25.6 pg (28.0-33.3); Mean Corpuscular Volume 84.5 fL (83.0-100.0); Mean Platelet Volume 10.9 fL (9.4-12.4); Monocytes # 0.6 K/mcL (0.0-1.3); Monocytes % 3.9 %; Neutrophils # 14.3 K/mcL (1.6-8.9); Platelet Count 316 K/mcL (140-400); Red Blood Count 4.45 M/mcL (3.82-4.97); Red Cell Distribution Width 15.2 % (11.5-14.5); Segmented Neutrophils % 90.5 %; White Blood Count 15.8 K/mcL (4.3-11.1)
[2019-08-07] MEDS: Menthol 9.1 MG LOZENGE PO PRN ×2 (04:32→21:00)
[2019-08-07 04:47] LABS: BUN/Creatinine Ratio 36 (6-26); Blood Urea Nitrogen 32 mg/dL (8-23); Calcium 8.2 mg/dL (8.6-10.3); Carbon Dioxide 25 mEq/L (23-29); Chloride 111 mEq/L (98-107); Glucose 250 mg/dL (70-105); Osmolality,Calculated 315 (280-300); Potassium 4.4 mEq/L (3.5-5.1); Sodium 145 mEq/L (136-145); eGFR For African Americans > 60 (> 60); eGFR For Non-African Americans > 60 (> 60)
[2019-08-07] MEDS: *HR* Heparin 5,000 UNIT/ML VIAL SQ SCH ×2 (05:49→18:16)
[2019-08-07] MEDS: Budesonide/Formoterol 160/4.5 1 PUFF INH IH SCH ×2 (07:32→20:31)
[2019-08-07] MEDS: 0.9 % Sodium Chloride 1,000 ML IVC SCH (08:34)
[2019-08-07] MEDS: Multivit/Ca/Min/Fe/FA 1 TAB TABLET PO SCH (08:35)
[2019-08-07] MEDS: Verapamil ER (24 HR) 240 MG TABLET.ER PO SCH (08:35)
[2019-08-07] MEDS: MethylPREDNISolone 40 MG/ML VIAL IVP SCH ×2 (08:35→18:18)
[2019-08-07] MEDS: Insulin LISPRO 300 UNITS/3 ML VIAL SQ SCH ×4 (08:35→20:50)
[2019-08-07] MEDS: Lisinopril 20 MG TABLET PO SCH (08:35)
[2019-08-07] MEDS ORDERED: 0.9 % Sodium Chloride 1,000 ML IVC SCH (13:02)
[2019-08-07] MEDS: Azithromycin 500 MG in 0.9 % Sodium Chloride 250 ML IVPB SCH (18:18)
[2019-08-07 20:47] LABS: Bilirubin,Urine Negative (Negative); Blood,Urine Negative (Negative); Clarity,Urine Clear (Clear); Color,Urine Yellow (Yellow); Glucose,Urine (UA) >=1000 mg/dL (Normal); Ketones,Urine Negative (Negative); Leukocyte Esterase,Urine Negative (Negative); Nitrite,Urine Negative (Negative); PH,Urine 6.5 pH Units (5.0-8.0); Protein,Urine Trace mg/dL (Neg-Trace); Specific Gravity,Urine > 1.030 (1.010-1.025); Urobilinogen,Urine Normal (Normal)
[2019-08-08] MEDS: MethylPREDNISolone 40 MG/ML VIAL IVP SCH ×4 (00:07→23:57)
[2019-08-08] MEDS: Ipratropium/Albuterol Neb 3 ML IH SCH ×7 (00:46→23:56)
[2019-08-08 02:38] LABS: Lymphocytes % 5.3 %; Red Cell Distribution Width 15.2 % (11.5-14.5)
[2019-08-08 02:40] LABS: Basophils % 0.3 %; Hematocrit 38.9 % (35.3-44.9); Hemoglobin 11.4 g/dL (11.5-15.4); Immature Granulocytes % 1.9 % (0-4); Lymphocytes # 0.8 K/mcL (0.6-4.6); Mean Corpuscular HGB Conc 29.3 g/dL (31.6-35.5); Mean Corpuscular Hemoglobin 25.2 pg (28.0-33.3); Mean Corpuscular Volume 85.9 fL (83.0-100.0); Mean Platelet Volume 11.6 fL (9.4-12.4); Monocytes # 0.7 K/mcL (0.0-1.3); Monocytes % 4.7 %; Neutrophils # 12.7 K/mcL (1.6-8.9); Platelet Count 355 K/mcL (140-400); Red Blood Count 4.53 M/mcL (3.82-4.97); Segmented Neutrophils % 87.8 %; White Blood Count 14.5 K/mcL (4.3-11.1)
[2019-08-08 02:53] LABS: BUN/Creatinine Ratio 38 (6-26); Blood Urea Nitrogen 33 mg/dL (8-23); Calcium 8.7 mg/dL (8.6-10.3); Carbon Dioxide 24 mEq/L (23-29); Glucose 160 mg/dL (70-105); Osmolality,Calculated 309 (280-300); Potassium 4.5 mEq/L (3.5-5.1); Sodium 144 mEq/L (136-145); eGFR For African Americans > 60 (> 60); eGFR For Non-African Americans > 60 (> 60)
[2019-08-08 03:11] LABS: Hypochromasia Present (Not Present); Platelet Estimate Normal (Normal)
[2019-08-08 03:12] LABS: Chloride 108 mEq/L (98-107)
[2019-08-08] MEDS: *HR* Heparin 5,000 UNIT/ML VIAL SQ SCH ×2 (06:35→17:35)
[2019-08-08] MEDS: Budesonide/Formoterol 160/4.5 1 PUFF INH IH SCH ×2 (07:14→19:56)
[2019-08-08] MEDS: Insulin LISPRO 300 UNITS/3 ML VIAL SQ SCH ×4 (09:48→20:52)
[2019-08-08] MEDS: Multivit/Ca/Min/Fe/FA 1 TAB TABLET PO SCH (09:49)
[2019-08-08] MEDS: Verapamil ER (24 HR) 240 MG TABLET.ER PO SCH (09:49)
[2019-08-08] MEDS: Lisinopril 20 MG TABLET PO SCH (09:49)
[2019-08-08] MEDS: Azithromycin 500 MG in 0.9 % Sodium Chloride 250 ML IVPB SCH (17:36)
[2019-08-09] MEDS ORDERED: *HR* Metoprolol 5 MG/5 ML VIAL IVP ONE (03:17)
[2019-08-09] MEDS: Ipratropium/Albuterol Neb 3 ML IH SCH ×6 (03:23→23:32)
[2019-08-09 05:15] LABS: Basophils % 0.3 %; Hematocrit 38.5 % (35.3-44.9); Hemoglobin 11.3 g/dL (11.5-15.4); Immature Granulocytes % 2.7 % (0-4); Lymphocytes # 0.7 K/mcL (0.6-4.6); Lymphocytes % 6.6 %; Mean Corpuscular HGB Conc 29.4 g/dL (31.6-35.5); Mean Corpuscular Hemoglobin 25.5 pg (28.0-33.3); Mean Corpuscular Volume 86.7 fL (83.0-100.0); Mean Platelet Volume 10.9 fL (9.4-12.4); Monocytes # 0.5 K/mcL (0.0-1.3); Monocytes % 4.3 %; Neutrophils # 9.6 K/mcL (1.6-8.9); Nucleated Red Blood Cells 0.2 /100 WBC (0); Platelet Count 311 K/mcL (140-400); Red Blood Count 4.44 M/mcL (3.82-4.97); Red Cell Distribution Width 15.2 % (11.5-14.5); Segmented Neutrophils % 86.1 %; White Blood Count 11.1 K/mcL (4.3-11.1)
[2019-08-09 05:44] LABS: BUN/Creatinine Ratio 45 (6-26); Blood Urea Nitrogen 32 mg/dL (8-23); Calcium 8.9 mg/dL (8.6-10.3); Carbon Dioxide 26 mEq/L (23-29); Chloride 109 mEq/L (98-107); Glucose 276 mg/dL (70-105); Osmolality,Calculated 305 (280-300); Potassium 4.4 mEq/L (3.5-5.1); Sodium 139 mEq/L (136-145); eGFR For African Americans > 60 (> 60); eGFR For Non-African Americans > 60 (> 60)
[2019-08-09] MEDS: *HR* Heparin 5,000 UNIT/ML VIAL SQ SCH ×2 (05:48→17:19)
[2019-08-09] MEDS: Budesonide/Formoterol 160/4.5 1 PUFF INH IH SCH ×2 (07:44→19:34)
[2019-08-09] MEDS: Verapamil ER (24 HR) 240 MG TABLET.ER PO SCH (07:58)
[2019-08-09] MEDS: Multivit/Ca/Min/Fe/FA 1 TAB TABLET PO SCH (07:58)
[2019-08-09] MEDS: Lisinopril 20 MG TABLET PO SCH (07:58)
[2019-08-09] MEDS: MethylPREDNISolone 40 MG/ML VIAL IVP SCH ×2 (07:59→15:49)
[2019-08-09] MEDS: Insulin LISPRO 300 UNITS/3 ML VIAL SQ SCH ×4 (07:59→21:55)
[2019-08-09] MEDS: Acetaminophen 325 MG TABLET PO PRN (11:32)
[2019-08-09] MEDS: Azithromycin 500 MG in 0.9 % Sodium Chloride 250 ML IVPB SCH (15:49)
[2019-08-10 02:31] LABS: Basophils % 0.3 %; Hematocrit 37.5 % (35.3-44.9); Hemoglobin 11.4 g/dL (11.5-15.4); Immature Granulocytes % 2.6 % (0-4); Lymphocytes # 0.9 K/mcL (0.6-4.6); Lymphocytes % 7.9 %; Mean Corpuscular HGB Conc 30.4 g/dL (31.6-35.5); Mean Corpuscular Hemoglobin 25.4 pg (28.0-33.3); Mean Corpuscular Volume 83.5 fL (83.0-100.0); Mean Platelet Volume 10.8 fL (9.4-12.4); Monocytes # 0.8 K/mcL (0.0-1.3); Monocytes % 6.6 %; Neutrophils # 9.6 K/mcL (1.6-8.9); Nucleated Red Blood Cells 0.3 /100 WBC (0); Platelet Count 303 K/mcL (140-400); Red Blood Count 4.49 M/mcL (3.82-4.97); Red Cell Distribution Width 15.4 % (11.5-14.5); Segmented Neutrophils % 82.6 %; White Blood Count 11.6 K/mcL (4.3-11.1)
[2019-08-10 02:54] LABS: BUN/Creatinine Ratio 37 (6-26); Blood Urea Nitrogen 34 mg/dL (8-23); Calcium 8.9 mg/dL (8.6-10.3); Carbon Dioxide 29 mEq/L (23-29); Chloride 106 mEq/L (98-107); Glucose 268 mg/dL (70-105); Osmolality,Calculated 311 (280-300); Potassium 4.8 mEq/L (3.5-5.1); Sodium 142 mEq/L (136-145); eGFR For African Americans > 60 (> 60); eGFR For Non-African Americans > 60 (> 60)
[2019-08-10] MEDS: Acetaminophen 325 MG TABLET PO PRN ×2 (03:02→10:40)
[2019-08-10] MEDS: Ipratropium/Albuterol Neb 3 ML IH SCH ×6 (03:10→23:46)
[2019-08-10] MEDS: *HR* Heparin 5,000 UNIT/ML VIAL SQ SCH ×2 (05:43→18:13)
[2019-08-10] MEDS: Budesonide/Formoterol 160/4.5 1 PUFF INH IH SCH ×2 (07:19→19:52)
[2019-08-10] MEDS: Insulin LISPRO 300 UNITS/3 ML VIAL SQ SCH ×4 (09:22→20:54)
[2019-08-10] MEDS: predniSONE 20 MG TABLET PO SCH (09:22)
[2019-08-10] MEDS: Lisinopril 20 MG TABLET PO SCH (09:22)
[2019-08-10] MEDS: Multivit/Ca/Min/Fe/FA 1 TAB TABLET PO SCH (09:22)
[2019-08-10] MEDS: Verapamil ER (24 HR) 240 MG TABLET.ER PO SCH (09:22)
[2019-08-10] MEDS ORDERED: Lisinopril 20 MG TABLET PO ONE (10:42)
[2019-08-10] MEDS: Azithromycin 500 MG in 0.9 % Sodium Chloride 250 ML IVPB SCH (18:14)
[2019-08-10] MEDS: Menthol 9.1 MG LOZENGE PO PRN (20:55)
[2019-08-11 02:42] LABS: Basophils # 0.1 K/mcL (0.0-0.2); Basophils % 0.5 %; Hematocrit 38.2 % (35.3-44.9); Hemoglobin 11.7 g/dL (11.5-15.4); Immature Granulocytes % 2.7 % (0-4); Lymphocytes # 1.4 K/mcL (0.6-4.6); Lymphocytes % 11.2 %; Mean Corpuscular HGB Conc 30.6 g/dL (31.6-35.5); Mean Corpuscular Hemoglobin 25.7 pg (28.0-33.3); Mean Platelet Volume 11.9 fL (9.4-12.4); Monocytes # 0.9 K/mcL (0.0-1.3); Monocytes % 7.4 %; Neutrophils # 9.7 K/mcL (1.6-8.9); Nucleated Red Blood Cells 0.2 /100 WBC (0); Platelet Count 230 K/mcL (140-400); Red Blood Count 4.55 M/mcL (3.82-4.97); Red Cell Distribution Width 15.5 % (11.5-14.5); Segmented Neutrophils % 78.2 %; White Blood Count 12.4 K/mcL (4.3-11.1)
[2019-08-11 02:59] LABS: BUN/Creatinine Ratio 39 (6-26); Blood Urea Nitrogen 29 mg/dL (8-23); Calcium 8.7 mg/dL (8.6-10.3); Carbon Dioxide 29 mEq/L (23-29); Chloride 103 mEq/L (98-107); Glucose 273 mg/dL (70-105); Osmolality,Calculated 304 (280-300); Potassium 4.8 mEq/L (3.5-5.1); Sodium 139 mEq/L (136-145); eGFR For African Americans > 60 (> 60); eGFR For Non-African Americans > 60 (> 60)
[2019-08-11] MEDS: Ipratropium/Albuterol Neb 3 ML IH SCH ×3 (03:40→11:34)
[2019-08-11] MEDS: *HR* Heparin 5,000 UNIT/ML VIAL SQ SCH (05:32)
[2019-08-11] MEDS: Budesonide/Formoterol 160/4.5 1 PUFF INH IH SCH (07:40)
[2019-08-11] MEDS: Multivit/Ca/Min/Fe/FA 1 TAB TABLET PO SCH (08:18)
[2019-08-11] MEDS: predniSONE 20 MG TABLET PO SCH (08:18)
[2019-08-11] MEDS: Insulin LISPRO 300 UNITS/3 ML VIAL SQ SCH (08:18)
[2019-08-11] MEDS: Verapamil ER (24 HR) 240 MG TABLET.ER PO SCH (08:18)
[2019-08-11] MEDS: Acetaminophen 325 MG TABLET PO PRN (08:18)
[2019-08-11] MEDS ORDERED: Lisinopril 20 MG TABLET PO SCH (09:00)
[2019-08-11 10:28] VITALS: BP 164/72
== END 2019-08-11 13:05 | disposition home health service (06) | DRG 872 ==
LOC: EMEROOARM 14:29 → 3BNU 14:29
PROVIDERS: ADMIT Pharmacist; ATTEND Pharmacist

== ENCOUNTER 2019-12-14 13:52 | Inpatient (IN) ==
[2019-12-14] MEDS ORDERED: CeFAZolin Syr 2,000MG/20 ML 2,000 MG/20 ML SYRINGE IVPB ONE (14:22)
[2019-12-14] MEDS ORDERED: Ringers Solution, Lactated 1,000 ML IVC SCH ×2 (14:30→19:52)
[2019-12-14] MEDS ORDERED: *HR* Promethazine 25 MG/ML VIAL IVP PRN (14:37)
[2019-12-14] MEDS ORDERED: *HR* HYDROmorphone PF 0.5 MG/0.5 ML SYRINGE IVP PRN (14:37)
[2019-12-14] MEDS ORDERED: Ondansetron 4 MG/2 ML VIAL IVP ONE (14:37)
[2019-12-14] MEDS ORDERED: *HR* OxyCODONE Immed Rel 5 MG TABLET PO PRN (14:37)
[2019-12-14] MEDS ORDERED: Acetaminophen IV 1,000 MG/100 ML INFUS..BTL IVPB ONE (14:40)
[2019-12-14] MEDS ORDERED: Ethanol\\Acetic Acid\\Na Ace\\Ben 1,000 ML IRRIG.SOLN IR ONE (17:30)
[2019-12-14] MEDS ORDERED: Lidocaine -MPF 2% 2 ML VIAL ONE (17:36)
[2019-12-14] MEDS ORDERED: *HR* Succinylcholine 200 MG/10 ML VIAL IVP ONE (17:36)
[2019-12-14] MEDS ORDERED: *HR* Propofol 200 MG/20 ML VIAL IVP ONE (17:36)
[2019-12-14] MEDS ORDERED: *HR* FentaNYL (PF) 100 MCG/2 ML VIAL ONE (17:36)
[2019-12-14] MEDS ORDERED: Lidocaine -MPF 4% 5 ML AMPUL ONE (17:36)
[2019-12-14] MEDS ORDERED: *HR* Midazolam HCl 2 MG/2 ML VIAL ONE (17:36)
[2019-12-14] MEDS ORDERED: ROPIVACAINE/PF/NS 0.25% 1 EACH SYRINGE INTRAART ONE (17:38)
[2019-12-14] MEDS ORDERED: Ropivacaine/PF 0.5% 30 ML VIAL ONE (17:38)
[2019-12-14] MEDS ORDERED: Vancomycin 1,000 MG VIAL ONE (17:39)
[2019-12-14] MEDS ORDERED: *HR* Enoxaparin 30 MG/0.3 ML SYRINGE SQ SCH (18:00)
[2019-12-14] MEDS ORDERED: Lidocaine HCL 4 ML Topical Solution (Laryng-O-Jet Kit Sterile Pak) TP ONE (18:02)
[2019-12-14] MEDS ORDERED: *HR* PHENYLEPHRINE 1,000 MCG/10 ML SYRINGE IVP ONE (18:14)
[2019-12-14] MEDS ORDERED: Ondansetron 4 MG/2 ML VIAL IVP PRN (19:52)
[2019-12-14] MEDS ORDERED: D5% in Water 1,000 ML IVC PRN (19:52)
[2019-12-14] MEDS ORDERED: NON-FORMULARY MEDICATION 1 EACH EACH (Ibandronate Sodium [Boniva] 150 MG) PO SCH (19:52)
[2019-12-14] MEDS ORDERED: Naloxone 0.4 MG/ML INJ IVP PRN (19:52)
[2019-12-14] MEDS ORDERED: *HR* Dextrose 50 % in Water (Vial) 50 ML VIAL IVP PRN (19:52)
[2019-12-14] MEDS ORDERED: Dextrose Gel 15 GM/37.5 ML TUBE PO PRN ×2 (19:52)
[2019-12-14] MEDS ORDERED: Saline Nasal Spray 44 ML BOTTLE NS PRN (19:52)
[2019-12-14] MEDS ORDERED: MOM Conc 10 ML UD.LIQ PO PRN (19:52)
[2019-12-14] MEDS ORDERED: Sennosides 8.6 MG TABLET PO PRN (19:52)
[2019-12-14] MEDS ORDERED: *HR* Metformin 500 MG TABLET PO SCH (19:52)
[2019-12-14] MEDS ORDERED: *HR* OxyCODONE/APAP 5/325 TABLET PO PRN (19:52)
[2019-12-14] MEDS ORDERED: Albuterol 2.5 MG/3 ML NEBULIZER IH PRN (20:00)
[2019-12-14 20:21] LABS: Hematocrit 35.6 % (35.3-44.9); Hemoglobin 10.7 g/dL (11.5-15.4)
[2019-12-14] MEDS ORDERED: Insulin LISPRO 300 UNITS/3 ML VIAL SQ SCH (21:00)
[2019-12-14] MEDS: Insulin LISPRO 300 UNITS/3 ML VIAL SQ SCH (21:00)
[2019-12-15] MEDS: CeFAZolin 2 GM/120 ML BAG IVPB SCH ×2 (02:03→10:07)
[2019-12-15 04:53] VITALS: BP 137/71
[2019-12-15] MEDS ORDERED: *HR* Enoxaparin 30 MG/0.3 ML SYRINGE SQ SCH (06:00)
[2019-12-15] MEDS: *HR* OxyCODONE Immed Rel 5 MG TABLET PO PRN ×3 (06:55→14:45)
[2019-12-15 07:59] LABS: Hemoglobin 11.4 g/dL (11.5-15.4)
[2019-12-15 08:14] LABS: BUN/Creatinine Ratio 23 (6-26); Blood Urea Nitrogen 15 mg/dL (8-23); Carbon Dioxide 25 mEq/L (23-29); Chloride 106 mEq/L (98-107); Glucose 168 mg/dL (70-105); Osmolality,Calculated 293 (280-300); Potassium 4.6 mEq/L (3.5-5.1); Sodium 139 mEq/L (136-145); eGFR For African Americans > 60 (> 60); eGFR For Non-African Americans > 60 (> 60)
[2019-12-15] MEDS ORDERED: (Roflumilast [Daliresp] 500 MCG) PO SCH (09:00)
[2019-12-15] MEDS ORDERED: (Umeclidinium Brm/Vilanterol Tr [Anoro Ellipta 62.5-2 IH SCH (09:00)
[2019-12-15] MEDS ORDERED: Verapamil ER (24 HR) 240 MG TABLET.ER PO SCH (09:00)
[2019-12-15] MEDS ORDERED: Multivit/Ca/Min/Fe/FA 1 TAB TABLET PO SCH (09:00)
[2019-12-15] MEDS ORDERED: lisinopriL 20 MG TABLET PO SCH (09:00)
[2019-12-15] MEDS: Insulin LISPRO 300 UNITS/3 ML VIAL SQ SCH ×2 (10:14→12:13)
[2019-12-15] MEDS ORDERED: Insulin DETEMIR 100 UNIT/ML X5UNITS SQ SCH (11:00)
[2019-12-15] MEDS ORDERED: Ketorolac 15 MG/ML VIAL IVP ONE (15:02)
== END 2019-12-15 17:00 | disposition home health service (06) | DRG 483 ==
LOC: SAMDAY 13:52 → 3NENU 14:34
PROVIDERS: ADMIT Orthopaedic Surgery; ATTEND Orthopaedic Surgery